=== PATIENT | male | born 1945 | race Caucasian/White ===

== ENCOUNTER 2022-05-22 19:08 | Inpatient (IN) | payer MEDICARE, SELFPAY ==
--- NOTE | ~2022-05-22 | XR_ITS ---
EXAMINATION: XR chest 1V DATE: 05/22/2022 20:09 INDICATION: Left-sided weakness. Unresponsive. TECHNIQUE: frontal view of the chest was obtained. COMPARISON: CT abdomen pelvis dated 10/22/[address] dated 05/22/2022 FINDINGS: Small lung volumes. Mild increased interstitial pattern throughout the lungs which could be due to mi ld pulmonary edema and/or atelectasis superimposed over moderate emphysema better appreciated on prio r CT. No pleural effusion or pneumothorax. Cardiomegaly. Median sternotomy wires and mediastinal surg ical clips are seen, likely from prior coronary artery bypass grafting. Right rotator cuff arthropath y. IMPRESSION: 1. Mild pulmonary edema versus atelectasis superimposed over mild to moderate emphysema. Reviewed, dictated and finalized at location A. IMPRESSION: 1. Mild pulmonary edema versus atelectasis superimposed over mild to moderate e mphysema.
--- NOTE | ~2022-05-22 | XR_ITS ---
EXAM: XR shoulder LT min 2V DATE: 05/31/2022 15:39 HISTORY: pt fell hit left shoulder . COMPARISON: None available. FINDINGS: Partially visualized intact sternotomy wires. Mediastinal vascular clips. Normal mineraliz ation. No fracture or dislocation. No lytic or blastic lesion. Moderate acromioclavicular hypertrophy . Superior migration of the left humeral head as can be seen with rotator cuff pathology. No erosion or periosteal change. Soft tissues within normal limits. IMPRESSION: No acute osseous finding in the left shoulder. Reviewed, dictated and finalized at location K.
--- NOTE | ~2022-05-22 | MR_ITS ---
EXAMINATION: MR brain/brain stem wo/w con DATE: 05/23/2022 15:52 INDICATION: Left hemiparesis. TECHNIQUE: Magnetic resonance imaging (MRI) of the brain and brainstem was performed without and with 13 mL MultiHance intravenous contrast. COMPARISON: Brain MRI 01/07/2019, head CT 05/22/2022 FINDINGS: There are patchy areas of acute infarct involving the right frontal, temporal, parietal, an d occipital lobes, right insula, and right basal ganglia in the expected distribution of right middle cerebral artery. There are old infarcts in the right frontal, parietal, and occipital lobes. There i s no intracranial hemorrhage or abnormal mass lesion. There are old infarcts in left frontal and vandana etal lobes. There are scattered areas of nonspecific increased T2-weighted signal intensity in the ce rebral white matter. The ventricles are normal in size. The orbits are normal. There is mild mucosal thickening in right maxillary sinus. The mastoid air cells are normal. IMPRESSION: 1. Large volume of acute infarct in the distribution of right middle cerebral artery. 2. Multiple old infarcts in the brain. 3. Moderate nonspecific cerebral white matter disease, which likely represents chronic small vessel i schemic disease. Reviewed, dictated and finalized at location A. IMPRESSION: 1. Large volume of acute infarct in the distribution of right middle cerebral a rtery. 2. Multiple old infarcts in the brain. 3. Moderate nonspecific cerebral white matter disease, which likely represents chronic small vessel ischemic disease.
--- NOTE | ~2022-05-22 | CT_ITS ---
EXAMINATION: CT brain wo con DATE: 05/31/2022 15:36 INDICATION: Fall and hit head . TECHNIQUE: Computed tomography (CT) of the head was performed without intravenous contrast. The mA wa s adjusted according to patient size. Iterative reconstruction technique was employed. The dose-lengt h product was 832.33 mGy-cm. COMPARISON: None FINDINGS: No acute intracranial hemorrhage or extra-axial fluid collection. No hydrocephalus, mass, or herniation. No acute ischemic infarct. Unremarkable dural venous sinus attenuation. No acute osseous abnormality. The aerated spaces are clear. Mild atrophy and chronic white matter change. Atherosclerotic intracranial calcification. Evolving ac brandi on chronic right MCA territory infarct. IMPRESSION: No acute traumatic intracranial findings. Reviewed, dictated and finalized at location K.
--- NOTE | ~2022-05-22 | CT_ITS ---
EXAMINATION: CT brain wo con DATE: 05/22/2022 19:30 INDICATION: Left-sided hemiparesis TECHNIQUE: Computed tomography (CT) of the head was performed without intravenous contrast. Sagittal and coronal reconstructions were performed. The mA was adjusted according to patient size. Iterative reconstruction technique was employed. The dose-length product was 605.33 mGy-cm. COMPARISON: Brain MR dated 01/07/2019 FINDINGS: Scattered regions of encephalomalacia in the right frontal and parietal lobes significantly more exte nsive than at the time of the prior MRI consistent with interval progression of chronic infarcts. Add itional small old infarct new since the prior study and the left parietal lobe. There is moderate sca ttered white matter hypoattenuation consistent with chronic small vessel ischemic disease. No acute i ntracranial hemorrhage, acute infarction or abnormal extra axial fluid collection. Ventricles are nor mal and symmetric. No mass/mass effect. Intracranial calcified cerebral atherosclerosis is noted. The orbits, paranasal sinuses and mastoid air cells are normal. IMPRESSION: 1. Multiple old infarcts most extensive throughout the right frontal and parietal lobes with small ol d infarct in the left parietal lobe. No acute intracranial process. Reviewed, dictated and finalized at location A. IMPRESSION: 1. Multiple old infarcts most extensive throughout the right frontal and pariet al lobes with small old infarct in the left parietal lobe. No acute intracrania l process.
--- NOTE | ~2022-05-22 | CT_ITS ---
EXAMINATION: CTA BRAIN/CAROTID DATE: 05/22/2022 20:07 INDICATION: Left-sided weakness. Unresponsive. TECHNIQUE: Computed tomographic angiography (CTA) of the head and neck was performed with 100 mL Omni paque-350 intravenous contrast. Multiplanar reconstructions and maximum intensity projection 3D-recon structions of the carotid arteries and of the intracranial arteries were created by the technologist on a separate workstation. Automated exposure control and iterative reconstruction technique were emp loyed.The dose-length product was 1022.76 mGy-cm. COMPARISON: None. FINDINGS: Carotid arteries: Fusiform ectasia of the ascending thoracic aorta which measures up to 3.9 cm maximal diameter. Extens brandon atherosclerotic coronary artery calcifications with change of prior median sternotomy and coronar y artery bypass grafting. There is 60% stenosis of the right carotid bulb relative to normal distal a rtery lumen diameter (NASCET criteria). There is 0% stenosis of the left carotid bulb relative to nor mal distal artery lumen diameter. Intracranial arteries Left vertebral artery is dominant. In addition there is significant stenosis of the distal portion of the right vertebral artery. Atherosclerotic calcific a cyst without hemodynamically significant sten osis along the bilateral carotid siphons. There is no hemodynamically significant stenosis in the bas ilar and internal carotid arteries. There are no aneurysms identified. Both A1 and P1 segments are p atent. There is also a large patent left posterior communicating artery. Cerebral arterial arborizati on appears symmetric. No abnormally enhancing brain lesions. Old infarcts in the right frontal and bi lateral parietal lobes as detailed on prior head CT. IMPRESSION: 1. 60% stenosis of the right carotid bulb relative to normal distal artery lumen diameter (NASCET cri teria). 2. 0% stenosis of the left carotid bulb relative to normal distal artery lumen diameter. 3. Left vertebral artery is dominant with additional significant stenosis along the diminutive distal right vertebral artery. Otherwise unremarkable cerebral CT angiogram. 4. Ectatic ascending thoracic aorta measuring 3.9 cm maximal diameter. 5. Moderate emphysema. Reviewed, dictated and finalized at location A. IMPRESSION: 1. 60% stenosis of the right carotid bulb relative to normal distal artery lume n diameter (NASCET criteria). 2. 0% stenosis of the left carotid bulb relative to normal distal artery lumen diameter. 3. Left vertebral artery is dominant with additional significant stenosis along the diminutive distal right vertebral artery. Otherwise unremarkable cerebral CT angiogram. 4. Ectatic ascending thoracic aorta measuring 3.9 cm maximal diameter. 5. Moderate emphysema.
--- NOTE | ~2022-05-22 | XR_ITS ---
EXAMINATION: XR barium swallow modified DATE: 06/05/2022 08:53 INDICATION: Dysphagia. TECHNIQUE: The patient was given barium-containing material of multiple consistencies to swallow by t he speech pathologist while I performed fluoroscopy. Fluoroscopy exposure time was 1.4 minutes. The n umber of fluoroscopy images saved to the PACS was 1. Dose-area product was 1.913 Gy-cm^2. FINDINGS: There is reduced labial seal/lip tension. There is reduced lingual movement. There is reduced larynge al elevation. There is laryngeal penetration with thin and mildly thick liquids. IMPRESSION: 1. Laryngeal penetration with thin and mildly thick liquids. 2. Please refer to the speech therapy report for recommendations. Reviewed, dictated and finalized at location A.
--- NOTE | ~2022-05-22 | US_ITS ---
EXAMINATION: US venous doppler [facility] DATE: 06/06/2022 08:53 INDICATION: Fever. TECHNIQUE: Grayscale ultrasound images without and with compression and Doppler ultrasound images of the bilateral lower extremity veins were obtained. COMPARISON: None. FINDINGS: The visualized portions of right common femoral vein, profunda (deep) femoral vein, femoral vein, pop liteal vein, peroneal veins, posterior tibial veins, and greater saphenous vein outflow are patent. The visualized portions of left common femoral vein, profunda femoral vein, femoral vein, popliteal v ein, peroneal veins, posterior tibial veins, and greater saphenous vein outflow are patent. IMPRESSION: 1. No deep venous thrombosis. Reviewed, dictated and finalized at location A.
--- NOTE | ~2022-05-22 | XR_ITS ---
EXAMINATION: XR abdomen obstructive series DATE: 06/03/2022 11:24 INDICATION: Pulled out gastrostomy tube. TECHNIQUE: Upright and supine views of the abdomen were obtained. COMPARISON: Abdomen radiograph 05/27/2022 FINDINGS: There are no dilated loops of bowel. There is contrast in the colon. No free intraperitonea l gas. Median sternotomy wires and mediastinal surgical clips are seen, likely from prior coronary ar narayan bypass grafting. IMPRESSION: 1. Normal bowel gas pattern. Reviewed, dictated and finalized at location A.
--- NOTE | ~2022-05-22 | XR_ITS ---
EXAMINATION: XR chest 1V portable DATE: 06/04/2022 13:34 INDICATION: Psychosis TECHNIQUE: frontal view of the chest was obtained. COMPARISON: Chest radiograph dated 06/01/2022 FINDINGS: Lung volumes are decreased. Mild opacities scattered throughout both lungs. No pleural effusion or pn eumothorax. The cardiomediastinal silhouette is abnormal limits for AP technique. Median sternotomy w ires and mediastinal surgical clips are seen, likely from prior coronary artery bypass grafting. Surg ical clips at the left neck. Dobbhoff type nasoenteric feeding tube with weighted tip in the body of the stomach. Retained oral contrast material in the colon. IMPRESSION: 1. Decreasing lung volumes with increase in still mild opacities scattered throughout both lungs whic h could represent atelectasis, mild pulmonary edema or pneumonia. Reviewed, dictated and finalized at location B. IMPRESSION: 1. Decreasing lung volumes with increase in still mild opacities scattered thro ughout both lungs which could represent atelectasis, mild pulmonary edema or pn eumonia.
--- NOTE | ~2022-05-22 | XR_ITS ---
EXAMINATION: XR barium swallow modified DATE: 05/23/2022 09:28 INDICATION: Possible aspiration TECHNIQUE: Modified barium esophagram was performed by myself who administered fluoroscopy, in conju nction with speech pathologist who administered barium in varying consistencies as per speech patholo gist documentation. This was recorded on tape. A single fluoroscopic spot image was recorded. Fluoros copy exposure time was 2.6 minutes. The DAP for this procedure was 3.936 Gycm2. FINDINGS: Oral stage: Reduced lingual movement. Pharyngeal phase: Reduced laryngeal elevation and adduction, reduced tongue base retraction, reduced pharyngeal squeeze, vallecular, piriform sinus, and pharyngeal wall residue. Laryngeal penetration: Present. Aspiration: Present. Laryngeal sensitivity: Absent. IMPRESSION: Abnormal modified barium swallow. Please refer to speech pathologist findings and specifi c feeding recommendations. Reviewed, dictated and finalized at location A. IMPRESSION: Abnormal modified barium swallow. Please refer to speech pathologis t findings and specific feeding recommendations.
--- NOTE | ~2022-05-22 | XR_ITS ---
MODIFIED ESOPHAGRAM HISTORY: Aspiration TECHNIQUE: Modified barium esophagram was performed by speech pathologist under radiologist fluorosco pic guidance. This was recorded on tape. The exam was reviewed on 05/26/2022 11:10 CDT. The DAP for this procedure was 2.1 Gycm2. Fluoroscopy time is 3 minutes. FINDINGS: Lateral projection of the cervical spine demonstrates normal alignment. Oral stage is wit hin normal limits. During pharyngeal stage there is reduced laryngeal elevation, reduced laryngeal ad duction with vallecular and piriform sinus residue. There is laryngeal penetration with aspiration wi th thin liquids and honey per cup. There is delayed cough reflex.. IMPRESSION: 1: Laryngeal penetration with aspiration. 2: Please refer to speech pathologist report for additional detail. Reviewed, dictated and finalized at location A.
--- NOTE | ~2022-05-22 | XR_ITS ---
XR chest 1V portable 06/01/2022 05:56 Indication: Aspiration. Procedure: AP portable chest Comparison: Comparison to multiple prior studies sequentially, with oldest reviewed study dated 05/22. Findings: Status post median sternotomy for CABG. There is diffuse bilateral airspace disease with pe ribronchial thickening. No pleural effusion or pneumothorax. There is residual contrast in the colon. Impression: 1: Diffuse bilateral airspace disease unchanged, pneumonia versus edema. Reviewed, dictated and finalized at location A. Impression: 1: Diffuse bilateral airspace disease unchanged, pneumonia versus edema.
--- NOTE | ~2022-05-22 | XR_ITS ---
EXAMINATION: XR fl Dobhoff insert/rad w img DATE: 06/03/2022 14:33 INDICATION: Aspiration. TECHNIQUE: A placed a nasoenteric tube with fluoroscopic guidance. The number of images was 2. The fl uoroscopy exposure time was 2.2 minutes. COMPARISON: CT abdomen 10/22/2018 FINDINGS: The nasoenteric tube tip is in the distal stomach. IMPRESSION: 1. Fluoroscopy guided nasoenteric tube placement with tip in the distal stomach. Reviewed, dictated and finalized at location A. IMPRESSION: 1. Fluoroscopy guided nasoenteric tube placement with tip in the distal stomach .
--- NOTE | ~2022-05-22 | XR_ITS ---
EXAMINATION: XR chest 1V portable DATE: 05/24/2022 06:07 INDICATION: Fever. TECHNIQUE: A single frontal view of the chest was obtained. COMPARISON: Chest single view 05/22/2022, CT abdomen 10/22/2018 FINDINGS: There is a diffuse interstitial pattern, consistent mild pulmonary edema. No pleural effusi on or pneumothorax. Cardiomegaly is noted. Median sternotomy wires and mediastinal surgical clips are seen, likely from prior coronary artery bypass grafting. IMPRESSION: 1. Mild pulmonary edema. 2. Cardiomegaly. Reviewed, dictated and finalized at location A.
--- NOTE | ~2022-05-22 | XR_ITS ---
EXAMINATION: XR abdomen NG/feed tube insert DATE: 05/27/2022 06:27 INDICATION: Is a gastric tube insertion TECHNIQUE: A supine view of the abdomen and lower chest was obtained for evaluation of feeding tube placement. COMPARISON: CT dated 10/22/2018 FINDINGS: Nasogastric tube tip in proximal side port in the body of the stomach. Retained oral contrast materia l in the colon related to a prior modified swallow study. No dilated loops of gas-filled bowel in the visualized abdomen to suggest obstruction. Visualized portion of the lungs are clear with no pulmona ry edema, pleural effusion or pneumothorax. Heart size is normal. Median sternotomy wires and mediast inal surgical clips are seen, likely from prior coronary artery bypass grafting. Mild lumbar dextrocu rvature with severe spondylosis. IMPRESSION: 1. Nasogastric tube in stomach. Reviewed, dictated and finalized at location A.
--- NOTE | ~2022-05-22 | CT_ITS ---
EXAMINATION: CT cervical spine wo con DATE: 05/22/2022 19:32 INDICATION: Left-sided weakness post fall TECHNIQUE: Computed tomography (CT) of the cervical spine was performed without intravenous contrast. Automated exposure control and iterative reconstruction technique were employed. The dose-length pro duct was 324.99 mGy-cm. 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 1-2 mm anterolisthesis C7 on T1. Al ignment is otherwise normal. Vertebral body heights are normal. No fracture. Severe disc height loss at C5-C6 and C6-C7. Moderate disc height loss at C4-C5. Mild disc height loss at C2-C3, C3-C4 and C7- T1. Disc bulges resulting in multilevel mild central canal stenosis. C2-C3 and extending through C6-C 7. Severe facet osteoarthritis on the right at C7-T1 and moderate facet osteoarthritis throughout the remainder of the cervical spine. There is also multilevel severe cervical uncovertebral osteoarthrit is. Together this results in multilevel mild to moderate bilateral cervical neural foraminal stenosis . Multiple surgical clips the left side of the neck. Prominent atherosclerotic calcifications at the right carotid bulb. Ectasia of the incompletely visualized descending thoracic aorta which measures a t least 3.9 cm in maximal diameter. Moderate emphysema in the visualized upper lungs. Median sternoto my wires suggesting prior coronary artery bypass grafting. IMPRESSION: 1. Severe cervical spondylosis. No acute osseous abnormality. 2. Moderate emphysema. 3. Prominent atherosclerotic calcification at the right carotid bulb which appears potentially hemody namically significant. Reviewed, dictated and finalized at location A. IMPRESSION: 1. Severe cervical spondylosis. No acute osseous abnormality. 2. Moderate emphysema. 3. Prominent atherosclerotic calcification at the right carotid bulb which appe ars potentially hemodynamically significant.
--- NOTE | 2022-05-22 19:19 | ECG_ITS ---
Measurements Intervals Pauline Rate: 107 P: 20 IL: 149 QRS: -3 QRSD: 94 T: 64 QT: 332 QTc: 444 Interpretive Statements SINUS TACHYCARDIA POSSIBLE LEFT ATRIAL ENLARGEMENT CONSIDER INFERIOR INFARCT, AGE INDETERMINATE NONSPECIFIC ST & T-WAVE ABNORMALITY- ANTEROLAT/HIGH LAT LEADS BASELINE ARTIFACT- I, II, AVR, AVL, AVF, V2-V3 ABNORMAL ECG NO PREVIOUS ECG AVAILABLE FOR COMPARISON Electronically Signed On 05-22-2022 20:16:26 CDT by Ed Gaming D.O.
[2022-05-22 19:22] LABS: Glucose Point of Care 110 mg/dl (65-105)
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
[2022-05-22 19:28] LABS: Basophils Percent Auto 0.2 % (0.2-1.2); Hematocrit 38.7 % (42.0-52.0); Hemoglobin 12.9 g/dL (14.0-18.0); Immature Granulocyte Absolute 0.07 K/mm3 (0.00-0.031); Immature Granulocyte Percent A 0.6 % (0-0.5); Lymphocytes Absolute Auto 0.37 K/mm3 (0.9-3.2); Lymphocytes Percent Auto 3.2 % (18.3-44.2); Mean Corpuscular HGB Conc 33.3 g/dl (32-36); Mean Corpuscular Hemoglobin 29.9 pg (26-34); Mean Corpuscular Volume 89.8 fl (80-100); Mean Platelet Volume 10.3 fl (7.4-10.4); Monocytes Absolute Auto 0.8 K/mm3 (0.1-0.6); Monocytes Percent Auto 6.9 % (2.6-8.5); Neutrophils Absolute Auto 10.3 K/mm3 (1.3-6.7); Neutrophils Percent Auto 89.1 % (45.5-73.1); Platelet Count Result 257 k/mm3 (150-375); Red Blood Count 4.31 M/mm3 (4.6-6.20); Red Cell Distribution Width 14.6 % (11.5-14.5); White Blood Count 11.5 K/mm3 (4.5-10.0)
[2022-05-22 19:39] LABS: Alanine Aminotransferase 22 U/L (6-50); Albumin Level 3.9 g/dL (3.5-5.1); Alkaline Phosphatase 94 U/L (38-126); Anion Gap 14 mmol/L (8-16); Aspartate Amino Transferase 40 U/L (17-59); Bilirubin,Total 1.2 mg/dL (0.2-1.3); Blood Urea Nitrogen 25 mg/dL (9-20); Calcium 8.5 mg/dL (8.4-10.2); Carbon Dioxide 18 mmol/L (22-30); Chloride 95 mmol/L (98-107); Estimated Glomerular Filt Rate 39; Glucose 106 mg/dL (65-110); Potassium 4.1 mmol/L (3.4-5.0); Sodium 127 mmol/L (137-145)
[2022-05-22 19:40] LABS: INR 1.3; Partial Thromboplastin Time 30.1 SECONDS (22.3-36.8); Prothrombin Time 15.2 Seconds (11.1-14.7)
[2022-05-22 19:45] VITALS: BP 116/82; PULSE 100; RESP 18; TEMP 36.8; O2SAT 92
[2022-05-22 20:08] LABS: Troponin I 0.074 ng/mL (0.000-0.034)
[2022-05-22 20:14] LABS: SARS-CoV-2 RNA PCR Negative
[2022-05-22] MEDS: SODIUM CHLORIDE 0.9% IV 1,000 ML 999 ML IV CONT (20:26)
[2022-05-22 20:28] VITALS: BP 111/71; PULSE 107; RESP 18; O2SAT 94
[2022-05-22] MEDS: ASPIRIN 81 MG CHEWABLE TABLET 324 MG PO (21:03)
[2022-05-22 22:02] LABS: Appearance Urine Clear (Clear); Bilirubin Urine Negative (Negative); Blood Urine 2+ (Negative); Color Urine Yellow (Yellow); Glucose Urine UA Negative (Negative); Ketones Urine Trace mg/dL (Negative); Leukocyte Esterase Ur Negative LEU/UL (Negative); Nitrate Urine Negative (Negative); Protein Urine Trace mg/dL (Negative); Specific Grav Ur <= 1.005 (1.001-1.035)
[2022-05-22 22:05] LABS: Lactic Acid Reflex 0.8 mmol/L (0.7-2.0)
[2022-05-22 22:15] LABS: NT Pro B Type Natriuretic Pept 3530 pg/mL (5-100)
[2022-05-22 22:17] LABS: Squamous Epithelial Cell Urine Rare /hpf (Few); WBC Urine 0-3 /hpf
[2022-05-22 22:18] LABS: Add Urine Microscopic? YES
[2022-05-22 22:50] VITALS: BP 126/86; PULSE 100; RESP 17; O2SAT 96
[2022-05-22] MEDS: CLOPIDOGREL BISULFATE 75 MG TABLET PO (23:00)
--- NOTE | 2022-05-22 23:11 | ADMGEN ---
This patient, Paul Min Sr., was admitted to IMU Room 213-01 at 2311. Patient/family oriented to hospital policies and general routines including ID bracelet, bed and alarms, visiting hours, pain management, procedures, bathroom and other care routines, personal items, smoking policy, room service/diet, and visiting hours. Information on how to activate the Rapid Response Team has been discussed. Patient/Family are encouraged to report perceived risks to care and to ask questions if they do not understand what they are told or what they should do.
[2022-05-22 23:35] VITALS: BP 123/86; PULSE 102; RESP 20; TEMP 37.7; O2SAT 97
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
[2022-05-23] VITALS (18 sets, daily range): BP systolic 89–142; BP diastolic 58–86; PULSE 90–120; RESP 18–26; TEMP 36.4–37.9; O2SAT 92–100; BMI 25.5; BMI 11.0
[2022-05-23 01:45] LABS: Troponin I 0.058 ng/mL (0.000-0.034)
--- NOTE | 2022-05-23 01:48 | ADMGEN ---
This patient, Paul Min Sr., was admitted to IMU Room 213-01 at 2315. Patient/family oriented to hospital policies and general routines including ID bracelet, bed and alarms, visiting hours, pain management, procedures, bathroom and other care routines, personal items, smoking policy, room service/diet, and visiting hours. Information on how to activate the Rapid Response Team has been discussed. Patient/Family are encouraged to report perceived risks to care and to ask questions if they do not understand what they are told or what they should do.
[2022-05-23] MEDS: SODIUM CHLORIDE 0.9% IV 1,000 ML 100 ML IV CONT (02:00)
--- NOTE | 2022-05-23 03:25 | PC.NURSE ---
05/23/22 0315 Patient bladder scanned. Greater than [address] Grullon's verbal order, mesa catheter inserted.
[2022-05-23 05:12] LABS: Basophils Percent Auto 0.2 % (0.2-1.2); Hematocrit 36.6 % (42.0-52.0); Hemoglobin 11.9 g/dL (14.0-18.0); Immature Granulocyte Absolute 0.08 K/mm3 (0.00-0.031); Immature Granulocyte Percent A 0.7 % (0-0.5); Immature Platelet Fraction Pct 7.1 % (0.9-11.2); Lymphocytes Absolute Auto 0.68 K/mm3 (0.9-3.2); Lymphocytes Percent Auto 6.2 % (18.3-44.2); Mean Corpuscular HGB Conc 32.5 g/dl (32-36); Mean Corpuscular Hemoglobin 29.4 pg (26-34); Mean Corpuscular Volume 90.4 fl (80-100); Mean Platelet Volume 11.4 fl (7.4-10.4); Monocytes Absolute Auto 1.3 K/mm3 (0.1-0.6); Monocytes Percent Auto 11.5 % (2.6-8.5); Neutrophils Absolute Auto 8.9 K/mm3 (1.3-6.7); Neutrophils Percent Auto 81.4 % (45.5-73.1); Platelet Count Result 227 k/mm3 (150-375); Red Blood Count 4.05 M/mm3 (4.6-6.20); Red Cell Distribution Width 14.6 % (11.5-14.5); White Blood Count 10.9 K/mm3 (4.5-10.0)
[2022-05-23 05:23] LABS: Alanine Aminotransferase 20 U/L (6-50); Albumin Level 3.8 g/dL (3.5-5.1); Alkaline Phosphatase 79 U/L (38-126); Anion Gap 16 mmol/L (8-16); Aspartate Amino Transferase 42 U/L (17-59); Blood Urea Nitrogen 22 mg/dL (9-20); Calcium 8.5 mg/dL (8.4-10.2); Carbon Dioxide 14 mmol/L (22-30); Chloride 104 mmol/L (98-107); Estimated CRCL calculation 35 ml/min; Estimated Glomerular Filt Rate 54; Glucose 98 mg/dL (65-110); Potassium 4.3 mmol/L (3.4-5.0); Sodium 134 mmol/L (137-145)
[2022-05-23 05:32] LABS: Burr Cells 2+ (NORMAL); Ovalocytes 1+ (NORMAL); Platelet Estimate Adequate (Adequate)
[2022-05-23 05:39] LABS: Schistocytes None Seen (NORMAL)
[2022-05-23 05:42] LABS: Cholesterol 217 mg/dL (0-200); HDL Direct 37 mg/dL; Triglycerides 120 mg/dL (<150)
[2022-05-23 05:53] LABS: LDL Cholesterol Direct 157 mg/dL
--- NOTE | 2022-05-23 06:00 | ECHO_ITS ---
Patient Info Name: Paul Min Age: 76 years : 1945 Gender: Male Ht: 63 in Wt: 145 lbs BSA: 1.72 m2 HR: 101 bpm BP: 120 / 80 mmHg Technical Quality: Good Exam Date: 05/23/2022 2:06 PM Exam Location: [facility] Patient Status: Inpatient Admit Date: 05/22/2022 Staff Ordering Physician: Jonathan Menon DO Thread Grinder Tool: Nitish Martin RDCS, RT Attending Provider: Jerrica Grullon DO Referring Physician: Lynsey GEORGE; Exam Type: CA echo dop color flow w con Study Info Indications I50.9 - Heart failure, unspecified Complete two-dimensional, color flow and Doppler transthoracic echocardiogram is performed with contrast to opacify the left ventricle and to improve the deliniation of the left ventricle endocardial borders. Strain analysis performed. Summary 1. Left ventricular chamber dimension is normal. 2. Definity contrast administered improved wall motion interpretation. 3. Left ventricular systolic function is normal, estimated at 55-60%. 4. The left ventricular diastolic function is grade I diastolic dysfunction. 5. E/e' 3 is not elevated. 6. Right ventricular systolic function is reduced based on abnormal TAPSE 1.5 cm. 7. Left atrial chamber dimension is mildly enlarged. 8. The mitral valve has mildly calcified annulus. 9. There is mild mitral valve regurgitation. Left Ventricle Definity contrast administered improved wall motion interpretation. E/e' 3 is not elevated. Global longitudinal strain is abnormal at -15.3%. Left ventricular chamber dimension is normal. Left ventricular systolic function is normal, estimated at 55-60%. The left ventricular diastolic function is grade I diastolic dysfunction. Right Ventricle Right ventricular systolic function is reduced based on abnormal TAPSE 1.5 cm. Right ventricular chamber dimension is not well visualized. Left Atria Left atrial chamber dimension is mildly enlarged. Right Atria Right atrial chamber dimension is normal. Aortic Valve The aortic valve is trileaflet. There is no aortic valve stenosis. There is no aortic valve regurgitation. Pulmonic Valve There is no pulmonic regurgitation. Mitral Valve The mitral valve has mildly calcified annulus. There is no mitral valve stenosis. There is mild mitral valve regurgitation. Tricuspid Valve There is no tricuspid valve regurgitation. Pericardium/Pleural There is no pericardial effusion. Inferior Vena Cava Normal inferior vena cava with >50% collapse upon inspiration consistent with normal right atrial pressure, 5 mmHg. Aorta The aortic root size at the sinus of Valsalva is normal. Left Ventricular Outflow Tract Name Value Normal LVOT 2D LVOT Diameter 2.05 cm LVOT Doppler LVOT Peak Gradient 2 mmHg LVOT Mean Gradient 1 mmHg LVOT VTI 11.71 cm LVOT VTI/AV VTI Ratio 0.94 LVOT Stroke Volume 38.52 ml LVOT CO 4.03 l/min LVOT CI 2.34 L/min/m2
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
[2022-05-23] MEDS: PERFLUTREN LIPID MICROSPHERES 1.5 ML VIAL DILUTED TO 10 ML TOTAL VOLUME IV PUSH (14:20)
--- NOTE | 2022-05-23 14:20 | IVDEFINITY ---
Prior to administration of IV Definity the patient was educated on the risks and benefits of the imaging enhancing agent including potential adverse side effects. The patient verbalized understanding. Allergies were verified. No exclusion criteria were identified and at least one of the following inclusion criteria were met: 1) physician request, 2) patient technically difficult to image (per the [place] [employer] guidelines of two or more segments not discernable within the apical view), or 3) questionable left ventricular function. ?
--- NOTE | 2022-05-23 14:41 | PM.IMPN ---
Progress Note: A&P Assessment and Plan (1) CVA (cerebral vascular accident): Qualifiers: CVA mechanism: unspecified Qualified Code(s): I63.9 - Cerebral infarction, unspecified Code(s): I63.9 - Cerebral infarction, unspecified Status: Acute Assessment and Plan: Neurology consult pending, MRI, echo pending, check lipids and a1c, cerebral angiogram and vascular surgery c/s for carotid stenosis (2) Carotid stenosis: Qualifiers: Laterality: right Qualified Code(s): I65.21 - Occlusion and stenosis of right carotid artery Code(s): I65.29 - Occlusion and stenosis of unspecified carotid artery Status: Acute Assessment and Plan: plavix, aspirin, statin (3) Elevated troponin: Code(s): R77.8 - Other specified abnormalities of plasma proteins Status: Acute (4) Renal failure: Qualifiers: Renal failure chronicity: unspecified chronicity Qualified Code(s): N19 - Unspecified kidney failure Code(s): N19 - Unspecified kidney failure Status: Acute (5) BPH (benign prostatic hyperplasia): Code(s): N40.0 - Benign prostatic hyperplasia without lower urinary tract symptoms Status: Acute Plan DVT prophylaxis with SCDs GI prophylaxis not indicated Code status full code Subjective Date/time seen: 05/23/22 14:41 Objective Data Vital Signs Vital Signs: Vital Signs - 24 hr 05/22/22 19:45 05/22/22 20:28 05/22/22 22:50 Temperature 98.2 F Pulse Rate 100 107 H 100 Respiratory Rate 18 18 17 Blood Pressure 116/82 111/71 126/86 Pulse Oximetry 92 94 96 Oxygen Delivery Room Air 05/22/22 23:35 05/23/22 00:00 05/23/22 02:00 Temperature 99.9 F H Pulse Rate 102 H 102 H 115 H Respiratory Rate 20 Blood Pressure 123/86 Pulse Oximetry 97 Oxygen Delivery 05/23/22 04:00 05/23/22 04:00 05/23/22 05:09 Temperature 100.1 F H Pulse Rate 112 H 115 H Respiratory Rate 20 Blood Pressure Pulse Oximetry 97 Oxygen Delivery Room Air 05/23/22 04:00 05/23/22 06:00 05/23/22 08:40 Temperature 99.7 F H 98.4 F Pulse Rate 108 H 112 H 96 Respiratory Rate 18 24 H Blood Pressure 120/80 142/86 H Pulse Oximetry 92 96 Oxygen Delivery 05/23/22 08:00 05/23/22 09:57 05/23/22 12:00 Temperature 98.4 F 100.1 F H Pulse Rate 96 94 Respiratory Rate 24 H 24 H Blood Pressure 142/86 H 89/58 L Pulse Oximetry 96 96 Oxygen Delivery Room Air 05/23/22 12:55 Temperature Pulse Rate Respiratory Rate Blood Pressure Pulse Oximetry 96 Oxygen Delivery Room Air Intake/Output Intake/Output: Intake & Output 05/20/22 05/21/22 05/22/22 05/23/22 23:59 23:59 23:59 23:59 Intake Total 1000 494 Output Total 1400 Balance 1000 -906 Meds/Results Medications: Active Medications Generic Name Dose Route Start Last Admin Trade Name Freq PRN Reason Stop Dose Admin Aspirin 81 mg 05/23/22 09:00 05/23/22 11:13 Aspirin 81 Mg Enteric Tablet PO Not Given QAM [facility] Clopidogrel Bisulfate 75 mg 05/23/22 09:00 05/23/22 11:13 Clopidogrel Bisulfate 75 Mg Tablet PO Not Given QAM [facility] Acetaminophen 1,000 mg in 100 mls @ 400 mls/hr 05/23/22 03:59 05/23/22 05:24 Ofirmev 1,000 Mg Ivpb IVPB 05/24/22 03:58 Infused Q6H PRN Infusion Pain Rated 4-6 or fever Tamsulosin HCl 0.4 mg 05/23/22 09:00 05/23/22 11:13 Tamsulosin Hcl 0.4 Mg Capsule PO Not Given QAM [facility] Radiology Results: ITS Impressions Head CT 05/22/22 19:31 IMPRESSION: 1. Multiple old infarcts most extensive throughout the right frontal and parietal lobes with small old infarct in the left parietal lobe. No acute intracranial process. Cervical Spine CT 05/22/22 19:56 IMPRESSION: 1. Severe cervical spondylosis. No acute osseous abnormality. 2. Moderate emphysema. 3. Prominent atherosclerotic calcification at the right carotid bulb which appears potentially hemodynamically significant
[2022-05-23] MEDS: ALBUTEROL SULFATE NEB 2.5 MG/3 ML INH INHALATION (17:15)
[2022-05-24] VITALS (15 sets, daily range): BP systolic 117–151; BP diastolic 66–80; PULSE 92–116; RESP 16–25; TEMP 36.9–38.7; O2SAT 81–100
[2022-05-24 04:44] LABS: Basophils Percent Auto 0.2 % (0.2-1.2); Hematocrit 36.5 % (42.0-52.0); Hemoglobin 11.9 g/dL (14.0-18.0); Immature Granulocyte Absolute 0.05 K/mm3 (0.00-0.031); Immature Granulocyte Percent A 0.5 % (0-0.5); Lymphocytes Absolute Auto 0.56 K/mm3 (0.9-3.2); Lymphocytes Percent Auto 5.9 % (18.3-44.2); Mean Corpuscular HGB Conc 32.6 g/dl (32-36); Mean Corpuscular Hemoglobin 29.2 pg (26-34); Mean Corpuscular Volume 89.7 fl (80-100); Mean Platelet Volume 10.2 fl (7.4-10.4); Monocytes Percent Auto 10.3 % (2.6-8.5); Neutrophils Absolute Auto 7.9 K/mm3 (1.3-6.7); Neutrophils Percent Auto 83.1 % (45.5-73.1); Platelet Count Result 269 k/mm3 (150-375); Red Blood Count 4.07 M/mm3 (4.6-6.20); Red Cell Distribution Width 14.9 % (11.5-14.5); White Blood Count 9.5 K/mm3 (4.5-10.0)
[2022-05-24 05:25] LABS: Anion Gap 15 mmol/L (8-16); Blood Urea Nitrogen 19 mg/dL (9-20); Calcium 8.4 mg/dL (8.4-10.2); Carbon Dioxide 19 mmol/L (22-30); Chloride 103 mmol/L (98-107); Estimated CRCL calculation 38 ml/min; Estimated Glomerular Filt Rate 59; Glucose 101 mg/dL (65-110); Potassium 4.3 mmol/L (3.4-5.0); Sodium 137 mmol/L (137-145)
[2022-05-24 10:30] LABS: CRP 33.3 mg/dL (<1.0)
[2022-05-24 10:54] LABS: Procalcitonin 1.9 ng/mL
--- NOTE | 2022-05-24 11:01 | PM.IMPN ---
Progress Note: A&P Assessment and Plan (1) Encephalopathy: Code(s): G93.40 - Encephalopathy, unspecified Status: Acute Assessment and Plan: resolving, pull mesa when mentation resolves (2) CVA (cerebral vascular accident): Qualifiers: CVA mechanism: unspecified Qualified Code(s): I63.9 - Cerebral infarction, unspecified Code(s): I63.9 - Cerebral infarction, unspecified Status: Acute Assessment and Plan: MRI showed acute infarct in r. mca, multiple old infarcts Appreciate neurology consultation, continue PT/OT (3) Carotid stenosis: Qualifiers: Laterality: right Qualified Code(s): I65.21 - Occlusion and stenosis of right carotid artery Code(s): I65.29 - Occlusion and stenosis of unspecified carotid artery Status: Acute Assessment and Plan: plavix, aspirin, statin (4) Elevated troponin: Code(s): R77.8 - Other specified abnormalities of plasma proteins Status: Acute Assessment and Plan: repeat, monitor telemetry (5) Renal failure: Qualifiers: Renal failure chronicity: unspecified chronicity Qualified Code(s): N19 - Unspecified kidney failure Code(s): N19 - Unspecified kidney failure Status: Acute Assessment and Plan: appears resolved, monitor (6) BPH (benign prostatic hyperplasia): Code(s): N40.0 - Benign prostatic hyperplasia without lower urinary tract symptoms Status: Acute Assessment and Plan: mesa in place, cont flomax, attempt to wean when encephalopathy resolves Plan DVT prophylaxis with SCDs GI prophylaxis not indicated Code status full code Subjective Date/time seen: 05/24/22 11:01 Interval history: Family reports he has been having some hallucinations. No overnight events noted. No chest pain or shortness of breath. No nausea, vomiting or diarrhea. Some low-grade fevers noted, max temperature of a 100.2? Review of Systems Review of Systems: ROS unobtainable: Yes unobtainable due to mental status Exam Narrative: General: No acute distress, alert and oriented per baseline HEENT: Atraumatic, normocephalic, mucous membranes moist CV: Regular rate and rhythm, S1, S2 Lungs: Clear to auscultation bilaterally, no rales or crackles noted, no wheezes, good air entry Abdomen: Soft, nontender, nondistended Extremities: Normal to inspection Skin: No rashes noted, no lesions or wounds seen Neuro: Left facial droop noted, reduced sensation and motor strength of left upper and lower extremity, some dysarthria noted with speech, strength appears normal in right upper and lower extremity Objective Data Vital Signs Vital Signs: Vital Signs - 24 hr 05/23/22 12:00 05/23/22 12:55 05/23/22 17:18 Temperature 100.1 F H Pulse Rate 94 92 Respiratory Rate 24 H 22 H Blood Pressure 89/58 L Pulse Oximetry 96 96 Oxygen Delivery Room Air Oxygen Flow Rate 05/23/22 17:27 05/23/22 16:00 05/23/22 18:17 Temperature 99 F 100.2 F H Pulse Rate 92 120 H Respiratory Rate 24 H 26 H Blood Pressure 133/77 Pulse Oximetry 96 Oxygen Delivery Oxygen Flow Rate 05/23/22 12:00 05/23/22 14:00 05/23/22 16:00 Temperature Pulse Rate 96 101 H 104 H Respiratory Rate Blood Pressure Pulse Oximetry Oxygen Delivery Oxygen Flow Rate 05/23/22 18:00 05/23/22 20:00 05/23/22 12:00 Temperature 97.5 F L Pulse Rate 108 H 96 96 Respiratory Rate 18 18 Blood Pressure 101/67 Pulse Oximetry 100 100 Oxygen Delivery Room Air Oxygen Flow Rate 05/23/22 16:00 05/23/22 20:00 05/23/22 20:00 Temperature Pulse Rate 96 96 96 Respiratory Rate 18 18 Blood Pressure Pulse Oximetry 100 100 Oxygen Delivery Room Air Nasal Cannula Oxygen Flow Rate 2 05/23/22 22:00 05/24/22 00:00 05/24/22 00:00 Temperature 98.8 F Pulse Rate 90 95 95 Respiratory Rate 18 18 Blood Pressure 117/66 Pulse Oximetry
--- NOTE | 2022-05-24 12:00 | WPDNEUROPN ---
Progress Note: A&P Assessment and Plan (1) CVA (cerebral vascular accident): Qualifiers: CVA mechanism: unspecified Qualified Code(s): I63.9 - Cerebral infarction, unspecified Code(s): I63.9 - Cerebral infarction, unspecified Status: Acute (2) Carotid stenosis: Qualifiers: Laterality: right Qualified Code(s): I65.21 - Occlusion and stenosis of right carotid artery Code(s): I65.29 - Occlusion and stenosis of unspecified carotid artery Status: Acute Plan Paul Min Sr. is a 76 year old male with a history of HTN, HLD, COPD, ischemic cardiomyopathy who presented yesterday due to concerns for stroke. CT head showed old infarcts in the R frontoparietal region and L parietal lobe. CTA showed 60% right ICA stenosis and R vertebral artery stenosis. MRI showed R MCA territory infarct. - Patient is at risk of edema/hemorrhagic conversion given size of stroke. Stat CT head for any change in mental status or neuro exam - Continue ASA 81mg daily and Plavix 75mg daily - Start statin, check HgbA1c - PT/OT - Will need cerebral angiogram and vascular surgery evaluation within 2 weeks for carotid stenosis Subjective Date/time seen: 05/24/22 12:00 Interval history: Paul Min Sr. is a 76 year old male with a history of HTN, HLD, COPD, ischemic cardiomyopathy who presented due to concerns for stroke. LKW was 9AM on 05/22. Patient was noted to have left sided weakness. He was taken to [place] ED where he had an NIH score of 12 (gaze preference, facial droop, left arm weakness, left leg weakness, sensory deficit, dysarthria, limb ataxia, hemineglect). CT head showed chronic encephalomalacia, mostly in the R frontoparietal region and L parietal lobe, but no acute process. He did not receive tPA due to being outside the window of treatment. CTA showed 60% stenosis of the right ICA, diminutive R vertebral artery with stenosis. [facility] stroke neurology was consulted and they recommended no acute intervention for carotid stenosis, but did recommend outpatient angiogram. BP on arrival was within normal range. He was started on ASA and Plavix, and admitted for further stroke work-up. LDL is 157. No HgbA1c on file. MRI brain showed R MCA territory infarct. Patient did not have any new complaints this morning. Surface echo unremarkable. BP have been stable. He did have a temp of 100.2 yesterday evening. Review of Systems Constitutional: Constitutional: Reports weakness Eyes: Eyes: Reports no additional eye complaints ENT: Denies Normal hearing present and Denies tinnitus Cardiovascular: Cardiovascular: Reports no additional cardiovascular complaints Respiratory: Respiratory: Reports no additional respiratory complaints Gastrointestinal: Gastrointestinal: Reports no additional gastrointestinal complaints Genitourinary: Genitourinary: Reports no additional male genitourinary complaints Musculoskeletal: Musculoskeletal: Reports no additional musculoskeletal complaints Integumentary/Breasts: Skin/Breast: Reports system reviewed and no additional complaints, except as docu Neurologic: Reports as per HPI Psychiatric: Psychiatric: Reports no additional psychiatric complaints Exam Const: General: comfortable and no acute distress HENMT: General nose exam: Normal nares present Mouth: Yes moist mucous membranes Eyes: Pupils: Equal, round and reactive pupils present EOM: EOMs intact bilaterally Resp: Effort & Inspection: normal respiratory effort Auscultation: clear to auscultation bilaterally Cardio: Rate: regular rate Rhythm: regular rhythm GI: GI Palp: Yes Soft to palpation Auscultation: normal bowel sounds Skin: General skin exam: normal color Neuro: Other: Left facial droop. Strength 5/5 in right upper and right lower extremity. Strength 1/5 in left upper extremity and 2/5 in left lower extremity. Reduced sensation to light touch in left arm and left leg. Right gaze preferences with inabi
[2022-05-24 12:31] LABS: Troponin I 0.106 ng/mL (0.000-0.034)
--- NOTE | 2022-05-24 14:31 | ECG_ITS ---
Measurements Intervals [place] Rate: 97 P: 18 IN: 141 QRS: 6 QRSD: 93 T: 57 QT: 347 QTc: 441 Interpretive Statements SINUS RHYTHM POSSIBLE LEFT ATRIAL ENLARGEMENT NONSPECIFIC ST & T-WAVE ABNORMALITY COMPARED TO ECG 05/22/2022 19:49:03 HEART RATE DECREASED COMPARED TO PRIOR Electronically Signed On 05-25-2022 17:25:40 CDT by Randa Ahmadi M.D.
[2022-05-24] MEDS: SODIUM CHLORIDE 0.9% IV 1,000 ML 75 ML IV CONT (16:53)
[2022-05-25] VITALS (15 sets, daily range): BP systolic 118–140; BP diastolic 66–82; PULSE 78–100; RESP 14–22; TEMP 36.3–37.3; O2SAT 91–99
[2022-05-25] MEDS: SODIUM CHLORIDE 0.9% IV 1,000 ML 75 ML IV CONT ×2 (06:36→21:40)
--- NOTE | 2022-05-25 10:52 | PM.IMPN ---
Progress Note: A&P Assessment and Plan (1) Encephalopathy: Code(s): G93.40 - Encephalopathy, unspecified Status: Acute Assessment and Plan: Appears resolved, pull Yoon today (2) CVA (cerebral vascular accident): Qualifiers: CVA mechanism: unspecified Qualified Code(s): I63.9 - Cerebral infarction, unspecified Code(s): I63.9 - Cerebral infarction, unspecified Status: Acute Assessment and Plan: MRI showed acute infarct in r. mca, multiple old infarcts Appreciate neurology consultation, continue PT/OT (3) Carotid stenosis: Qualifiers: Laterality: right Qualified Code(s): I65.21 - Occlusion and stenosis of right carotid artery Code(s): I65.29 - Occlusion and stenosis of unspecified carotid artery Status: Acute Assessment and Plan: plavix, aspirin, statin (4) Elevated troponin: Code(s): R77.8 - Other specified abnormalities of plasma proteins Status: Acute Assessment and Plan: repeat, monitor telemetry Appreciate cardiology consultation, would recommend high-intensity statin continue aspirin and Plavix per their note (5) Renal failure: Qualifiers: Renal failure chronicity: unspecified chronicity Qualified Code(s): N19 - Unspecified kidney failure Code(s): N19 - Unspecified kidney failure Status: Acute Assessment and Plan: Resolved (6) BPH (benign prostatic hyperplasia): Code(s): N40.0 - Benign prostatic hyperplasia without lower urinary tract symptoms Status: Acute Assessment and Plan: Will DC Yoon today and monitor voiding Plan DVT prophylaxis with SCDs GI prophylaxis not indicated Code status full code Subjective Date/time seen: 05/25/22 10:52 Interval history: Patient much more alert today than yesterday. No overnight events noted. No chest pain or shortness of breath. No nausea, vomiting or diarrhea. No fevers or chills. Review of Systems Review of Systems: ROS unobtainable: Yes unobtainable due to mental status Exam Narrative: General: No acute distress, alert and oriented per baseline HEENT: Atraumatic, normocephalic, mucous membranes moist CV: Regular rate and rhythm, S1, S2 Lungs: Clear to auscultation bilaterally, no rales or crackles noted, no wheezes, good air entry Abdomen: Soft, nontender, nondistended Extremities: Normal to inspection Skin: No rashes noted, no lesions or wounds seen Neuro: Left facial droop noted, improved today, reduced sensation and motor strength of left upper and lower extremity, improved motor strength of left lower extremity, some dysarthria noted with speech, strength appears normal in right upper and lower extremity Objective Data Vital Signs Vital Signs: Vital Signs - 24 hr 05/24/22 12:00 05/24/22 16:00 05/24/22 12:00 Temperature 98.4 F 99.5 F Pulse Rate 106 H 104 H 104 H Respiratory Rate 16 20 20 Blood Pressure 120/76 148/78 H Pulse Oximetry 98 81 L 81 L Oxygen Delivery Room Air 05/24/22 12:00 05/24/22 14:00 05/24/22 16:00 Temperature Pulse Rate 109 H 107 H 109 H Respiratory Rate Blood Pressure Pulse Oximetry Oxygen Delivery 05/24/22 16:00 05/24/22 20:00 05/24/22 22:04 Temperature 101.7 F H 98.7 F Pulse Rate 102 H Respiratory Rate 20 Blood Pressure 131/76 Pulse Oximetry 92 Oxygen Delivery Room Air 05/24/22 20:00 05/25/22 00:00 05/24/22 23:26 Temperature 98.9 F Pulse Rate 102 H 92 92 Respiratory Rate 20 18 18 Blood Pressure 120/70 Pulse Oximetry 92 91 91 Oxygen Delivery Room Air Room Air 05/24/22 20:00 05/24/22 22:00 05/25/22 00:00 Temperature Pulse Rate 102 H 99 95 Respiratory Rate Blood Pressure Pulse Oximetry Oxygen Delivery 05/25/22 01:33 05/25/22 04:00 05/25/22 04:00 Temperature 98.1 F Pulse Rate 100 84 92 Respiratory Rate 20 Blood Pressure 138/76 Pulse Oximetry 93 Oxygen Deliver
--- NOTE | 2022-05-25 13:56 | PM.CNCAR ---
Assessment and Plan Assessment and plan (1) CVA (cerebral vascular accident): Qualifiers: CVA mechanism: unspecified Qualified Code(s): I63.9 - Cerebral infarction, unspecified Code(s): I63.9 - Cerebral infarction, unspecified Status: Acute (2) Elevated troponin: Code(s): R77.8 - Other specified abnormalities of plasma proteins Status: Acute (3) Hx of CABG: Onset Date: ~1990 Code(s): Z95.1 - Presence of aortocoronary bypass graft Status: Acute Plan Troponin elevations likely type 2 NSTEMI due to large acute CVA rather than type 1 NSTEMI. Echo this admission shows normal LVEF. Already on ASA and Plavix for his CVA. Would start high-intensity statin. No further inpatient cardiac workup needed at this time. Patient to follow up with outpatient Cardiology Clinic. History of Present Illness History of Present Illness Consult date/time: 05/25/22 13:56 Requesting physician: Jessica Bynum DO Consult reason: Other (Elevated troponin) Reason For Visit: CVA,Renal Insufficiency,Elevated Troponin Narrative: Patient is a 76-year-old male with a history of CAD s/p CABG, history of CVA, HTN, HLD, COPD who presented on 05/22 for acute CVA. He did not receive TPA due to being outside the window of treatment time. Workup this admission showed: Brain MRI showing large volume of acute infarct in the distribution of the right middle cerebral artery. Multiple old infarcts in the brain. Chronic small vessel ischemic disease. EKG with sinus rhythm with nonspecific STTW abnormalities Troponins 0.074 --> 0.058 --> 1.06 Echocardiogram done on 05/23 showed LVEF 55-60%, grade 1 diastolic dysfunction, reduced RV function, no significant valvular disease. Patient denies any recent chest pain. Daughter at bedside, and reports that he has done okay since his bypass Telemetry shows no significant arrhythmias. No evidence of atrial fibrillation. Review of Systems Review of Systems: All systems reviewed & are unremarkable except as noted in HPI and below (HPI) [facility] Past Medical History Medical History BPH (benign prostatic hyperplasia) Carotid stenosis CVA (cerebral vascular accident) (~05/2021) Emphysema/COPD Essential hypertension Hyperlipidemia Ischemic cardiomyopathy Surgical History Surgical History (Updated 05/25/22 @ 14:06 by Randa Ahmadi MD) History of left-sided carotid endarterectomy (~2020) Hx of CABG (~1990) 3 vessel CABG Family History Family History Mother Heart problem Natural of unknown etiology Father Smoking COPD (chronic obstructive pulmonary disease) Social History Social History Social History: Code status: Full code Surrogate decision maker: Kim Hudson (daughter) Smoking packs per day: 2 Smoking cigarettes per day: 40.0 Years smoked: 25 Smoking pack-years: 50.00 Smoking status: Former smoker Alcohol intake: never Substance use: never Living arrangements: alone Additional living arrangements comments: He is and lives alone. Has 2 daughters and 2 sons. 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 Spiritual care concerns: No Meds Home Medications and Allergies Home Medications Medication Instructions Recorded Confirmed Type aspirin 325 mg capsule 325 mg PO DAILY 05/24/22 05/24/22 History Allergies Allergy/AdvReac Type Severity Reaction Status Date / Time No Known Allergies Allergy Verified 05/22/22 20:26 Vital Signs Vital Signs - 24 hr 05/24/22 16:00 05/24/22 14:00 05/24/22 16:00 Temperature 37.5 C Pulse Rate 104 H 107 H 109 H Respiratory Rate 20 Blood Pressure 148/78 H Pulse Oximetry 81 L Oxygen Delivery 05/24/22 1
[2022-05-26] VITALS (16 sets, daily range): BP systolic 121–161; BP diastolic 57–94; PULSE 69–102; RESP 16–28; TEMP 36.4–36.8; O2SAT 92–99
[2022-05-26 04:56] LABS: Basophils Percent Auto 0.3 % (0.2-1.2); Eosinophils Percent Auto 0.1 % (0-4.4); Hematocrit 37.3 % (42.0-52.0); Hemoglobin 12.2 g/dL (14.0-18.0); Immature Granulocyte Absolute 0.12 K/mm3 (0.00-0.031); Immature Granulocyte Percent A 1.4 % (0-0.5); Lymphocytes Absolute Auto 0.61 K/mm3 (0.9-3.2); Lymphocytes Percent Auto 7.1 % (18.3-44.2); Mean Corpuscular HGB Conc 32.7 g/dl (32-36); Mean Corpuscular Hemoglobin 29.8 pg (26-34); Mean Platelet Volume 10.5 fl (7.4-10.4); Monocytes Absolute Auto 0.7 K/mm3 (0.1-0.6); Monocytes Percent Auto 8.4 % (2.6-8.5); Neutrophils Absolute Auto 7.1 K/mm3 (1.3-6.7); Neutrophils Percent Auto 82.7 % (45.5-73.1); Platelet Count Result 280 k/mm3 (150-375); Red Cell Distribution Width 15.2 % (11.5-14.5); White Blood Count 8.6 K/mm3 (4.5-10.0)
[2022-05-26 05:10] LABS: Alanine Aminotransferase 31 U/L (6-50); Albumin Level 3.4 g/dL (3.5-5.1); Alkaline Phosphatase 80 U/L (38-126); Anion Gap 12 mmol/L (8-16); Aspartate Amino Transferase 61 U/L (17-59); Bilirubin,Total 0.6 mg/dL (0.2-1.3); Blood Urea Nitrogen 26 mg/dL (9-20); Calcium 8.2 mg/dL (8.4-10.2); Carbon Dioxide 19 mmol/L (22-30); Chloride 110 mmol/L (98-107); Estimated CRCL calculation 45 ml/min; Estimated Glomerular Filt Rate > 60; Glucose 90 mg/dL (65-110); Potassium 3.5 mmol/L (3.4-5.0); Sodium 141 mmol/L (137-145)
--- NOTE | 2022-05-26 10:22 | PCOTNOTE ---
Attempted to see patient this am, however patient was unavailable with testing at this time.
--- NOTE | 2022-05-26 10:56 | PCSTNOTE ---
Please refer to the Modified Barium Swallow Evaluation in the EMR.
--- NOTE | 2022-05-26 12:30 | PCOTNOTE ---
Attempted to see patient this pm, however patient was sleeping soundly upon entering and was not disturbed for this reason.
[2022-05-26] MEDS: SODIUM CHLORIDE 0.9% IV 1,000 ML 75 ML IV CONT (13:46)
--- NOTE | 2022-05-26 15:20 | PCSTNOTE ---
On 05/26/22, the student, Darby Juarez, provided care and completed [facility] documentation on this patient. I have reviewed the student's documentation and agree with the findings.
--- NOTE | 2022-05-26 18:02 | PM.IMPN ---
Progress Note: A&P Assessment and Plan (1) Encephalopathy: Code(s): G93.40 - Encephalopathy, unspecified Status: Acute Assessment and Plan: Appears resolved, pull Yoon today (2) CVA (cerebral vascular accident): Qualifiers: CVA mechanism: unspecified Qualified Code(s): I63.9 - Cerebral infarction, unspecified Code(s): I63.9 - Cerebral infarction, unspecified Status: Acute Assessment and Plan: MRI showed acute infarct in r. mca, multiple old infarcts Appreciate neurology consultation, continue PT/OT (3) Carotid stenosis: Qualifiers: Laterality: right Qualified Code(s): I65.21 - Occlusion and stenosis of right carotid artery Code(s): I65.29 - Occlusion and stenosis of unspecified carotid artery Status: Acute Assessment and Plan: plavix, aspirin, statin (4) Elevated troponin: Code(s): R77.8 - Other specified abnormalities of plasma proteins Status: Acute Assessment and Plan: repeat, monitor telemetry Appreciate cardiology consultation, would recommend high-intensity statin continue aspirin and Plavix per their note (5) Renal failure: Qualifiers: Renal failure chronicity: unspecified chronicity Qualified Code(s): N19 - Unspecified kidney failure Code(s): N19 - Unspecified kidney failure Status: Acute Assessment and Plan: Resolved (6) BPH (benign prostatic hyperplasia): Code(s): N40.0 - Benign prostatic hyperplasia without lower urinary tract symptoms Status: Acute Assessment and Plan: Will DC Yoon today and monitor voiding (7) Dysphagia: Code(s): R13.10 - Dysphagia, unspecified Status: Acute Assessment and Plan: Will place NG tube and start tube feedings, patient has now failed swallow studies in several different occasions Plan DVT prophylaxis with SCDs GI prophylaxis not indicated Code status full code Subjective Date/time seen: 05/26/22 18:02 Interval history: Patient states he feels much better than yesterday. No overnight events noted. No chest pain or shortness of breath. No nausea, vomiting or diarrhea. No fevers or chills. Review of Systems Review of Systems: 12 point review of systems was assessed and was negative except as noted in the HPI Exam Narrative: General: HEENT: Atraumatic, normocephalic, mucous membranes moist CV: Regular rate and rhythm, S1, S2 Lungs: Clear to auscultation bilaterally, no rales or crackles noted, no wheezes, good air entry Abdomen: Soft, nontender, nondistended Extremities: Normal to inspection Skin: No rashes noted, no lesions or wounds seen Psych: Euthymic, normal affect Neuro: Left facial droop noted, somewhat improved from yesterday, right upper and lower extremities 5/5, left upper extremity 0/5, left lower extremity 3/5, sensation intact throughout everything except left upper extremity, diminished in left lower extremity Objective Data Vital Signs Vital Signs: Vital Signs - 24 hr 05/25/22 20:12 05/25/22 20:00 05/25/22 23:45 Temperature 97.3 F L 98.3 F Pulse Rate 78 78 84 Respiratory Rate 16 16 22 H Blood Pressure 118/66 128/82 Pulse Oximetry 97 97 99 Oxygen Delivery Room Air 05/25/22 23:58 05/25/22 20:00 05/25/22 22:00 Temperature Pulse Rate 84 83 90 Respiratory Rate 22 H Blood Pressure Pulse Oximetry 99 Oxygen Delivery Room Air 05/26/22 00:00 05/26/22 02:00 05/26/22 04:00 Temperature Pulse Rate 86 81 85 Respiratory Rate Blood Pressure Pulse Oximetry Oxygen Delivery 05/26/22 04:38 05/26/22 03:41 05/26/22 05:47 Temperature 98.2 F Pulse Rate 89 89 81 Respiratory Rate 20 20 Blood Pressure 148/82 H Pulse Oximetry 98 98 Oxygen Delivery Room Air 05/26/22 08:00 05/26/22 08:00 05/26/22 12:00 Temperature 97.5 F L 97.7 F Pulse Rate 83 73 Respiratory Rate 24 H 28 H Blood Pressure 161/94 H 136/
[2022-05-26 23:15] LABS: Glucose Point of Care 72 mg/dl (65-105)
[2022-05-27] VITALS (16 sets, daily range): BP systolic 115–154; BP diastolic 53–94; PULSE 76–98; RESP 16–20; TEMP 36.1–36.8; O2SAT 94–99; BMI 24.5; BMI 10.0
[2022-05-27] MEDS: SODIUM CHLORIDE 0.9% IV 1,000 ML 75 ML IV CONT (03:53)
[2022-05-27 04:42] LABS: Basophils Absolute Auto 0.1 K/mm3 (0.0-0.1); Basophils Percent Auto 0.6 % (0.2-1.2); Eosinophils Percent Auto 0.2 % (0-4.4); Hematocrit 38.3 % (42.0-52.0); Hemoglobin 12.3 g/dL (14.0-18.0); Immature Granulocyte Absolute 0.21 K/mm3 (0.00-0.031); Immature Granulocyte Percent A 2.4 % (0-0.5); Lymphocytes Absolute Auto 0.74 K/mm3 (0.9-3.2); Lymphocytes Percent Auto 8.5 % (18.3-44.2); Mean Corpuscular HGB Conc 32.1 g/dl (32-36); Mean Corpuscular Hemoglobin 29.5 pg (26-34); Mean Corpuscular Volume 91.8 fl (80-100); Mean Platelet Volume 10.9 fl (7.4-10.4); Monocytes Absolute Auto 0.9 K/mm3 (0.1-0.6); Monocytes Percent Auto 10.1 % (2.6-8.5); Neutrophils Absolute Auto 6.8 K/mm3 (1.3-6.7); Neutrophils Percent Auto 78.2 % (45.5-73.1); Platelet Count Result 322 k/mm3 (150-375); Red Blood Count 4.17 M/mm3 (4.6-6.20); Red Cell Distribution Width 15.4 % (11.5-14.5); White Blood Count 8.7 K/mm3 (4.5-10.0)
[2022-05-27 04:57] LABS: Alanine Aminotransferase 35 U/L (6-50); Albumin Level 3.3 g/dL (3.5-5.1); Alkaline Phosphatase 82 U/L (38-126); Anion Gap 10 mmol/L (8-16); Aspartate Amino Transferase 60 U/L (17-59); Bilirubin,Total 0.6 mg/dL (0.2-1.3); Blood Urea Nitrogen 23 mg/dL (9-20); Calcium 8.4 mg/dL (8.4-10.2); Carbon Dioxide 19 mmol/L (22-30); Chloride 111 mmol/L (98-107); Estimated CRCL calculation 49 ml/min; Estimated Glomerular Filt Rate > 60; Glucose 86 mg/dL (65-110); Potassium 3.7 mmol/L (3.4-5.0); Sodium 140 mmol/L (137-145)
--- NOTE | 2022-05-27 08:51 | PM.IMPN ---
Progress Note: A&P Assessment and Plan (1) Encephalopathy: Code(s): G93.40 - Encephalopathy, unspecified Status: Acute Assessment and Plan: close to baseline (2) CVA (cerebral vascular accident): Qualifiers: CVA mechanism: unspecified Qualified Code(s): I63.9 - Cerebral infarction, unspecified Code(s): I63.9 - Cerebral infarction, unspecified Status: Acute Assessment and Plan: MRI showed large acute infarct in r. mca, multiple old infarcts Appreciate neurology consultation, continue PT/OT rehab pending when able to get nutrition A1c and lipid panel pending slowly improving in facial droop and left lower extremity, left upper extremity appears unchanged with regards to motor function, sensation appears to be improving (3) Carotid stenosis: Qualifiers: Laterality: right Qualified Code(s): I65.21 - Occlusion and stenosis of right carotid artery Code(s): I65.29 - Occlusion and stenosis of unspecified carotid artery Status: Acute Assessment and Plan: plavix, aspirin, statin will need vasc surgery consult outpatient (4) BPH (benign prostatic hyperplasia): Code(s): N40.0 - Benign prostatic hyperplasia without lower urinary tract symptoms Status: Acute Assessment and Plan: mesa d/c, voiding well (5) Dysphagia: Code(s): R13.10 - Dysphagia, unspecified Status: Acute Assessment and Plan: Will place NG tube and start tube feedings, patient has now failed swallow studies in several different occasions Started on D5 half-normal saline +20 mEq of potassium until tube feeding order placed will consult GI in anticipation for PEG tube placement continue speech therapy start PPI (6) Emphysema/COPD: Code(s): J43.9 - Emphysema, unspecified Status: Acute Assessment and Plan: currently stable on room air, occasionally gets albuterol nebulizers Plan DVT prophylaxis with SCDs GI prophylaxis with PPI Code status full code Subjective Date/time seen: 05/27/22 08:51 Interval history: Patient states he feels about the same as yesterday, no complaints. No overnight events noted. No chest pain or shortness of breath. No nausea, vomiting or diarrhea. No fevers or chills. Review of Systems Review of Systems: 12 point review of systems was assessed and was negative except as noted in the HPI Exam Narrative: General: No acute distress, alert and oriented per baseline HEENT: Atraumatic, normocephalic, mucous membranes moist CV: Regular rate and rhythm, S1, S2 Lungs: Clear to auscultation bilaterally, no rales or crackles noted, no wheezes, good air entry Abdomen: Soft, nontender, nondistended Extremities: Normal to inspection Skin: No rashes noted, no lesions or wounds seen Psych: Euthymic, normal affect Neuro: Left facial droop remains, appears unchanged from yesterday, left upper extremity 0/5 strength, right upper extremity and right lower extremity 5/5 strength, left lower extremity 3/5 strength, sensation to light touch intact throughout all extremities today Objective Data Vital Signs Vital Signs: Vital Signs - 24 hr 05/26/22 12:00 05/26/22 15:05 05/26/22 10:00 Temperature 97.7 F Pulse Rate 73 76 Respiratory Rate 28 H Blood Pressure 136/90 Pulse Oximetry 94 97 Oxygen Delivery Room Air 05/26/22 14:00 05/26/22 12:00 05/26/22 12:00 Temperature Pulse Rate 82 83 Respiratory Rate Blood Pressure Pulse Oximetry Oxygen Delivery Room Air 05/26/22 16:00 05/26/22 16:00 05/26/22 16:00 Temperature 97.6 F Pulse Rate 87 69 Respiratory Rate 20 Blood Pressure 142/76 H Pulse Oximetry 93 Oxygen Delivery Room Air 05/26/22 18:00 05/26/22 20:00 05/26/22 20:00 Temperature 97.5 F L Pulse Rate 83 86 87 Respiratory Rate 16 Blood Pressure 132/57 L Pulse Oximetry 98 Oxygen Delivery 05/26/22 20:00 05/26/22 22:00
[2022-05-27] MEDS: CLOPIDOGREL BISULFATE 75 MG TABLET PO (09:32)
[2022-05-27] MEDS: ATORVASTATIN 40 MG TABLET 80 MG PO (09:32)
[2022-05-27] MEDS: PANTOPRAZOLE SODIUM IV 40 MG VIAL IV PUSH (09:33)
[2022-05-27] MEDS: KCL 20 MEQ/D5/0.45% SOD CHL 1,000 ML 100 ML IV CONT ×2 (09:37→20:25)
[2022-05-27 10:31] LABS: Troponin I 0.021 ng/mL (0.000-0.034)
[2022-05-27 12:44] LABS: Hemoglobin A1C 5.5 % (<5.7)
--- NOTE | 2022-05-27 13:20 | PCNSR ---
On 05/27/22, the student, Fer Greer, provided care and [facility]. I have reviewed the student's documentation and agree with the findings.
--- NOTE | 2022-05-27 15:02 | WPDGICN ---
Assessment and Plan Assessment and plan (1) CVA (cerebral vascular accident): Qualifiers: CVA mechanism: unspecified Qualified Code(s): I63.9 - Cerebral infarction, unspecified Code(s): I63.9 - Cerebral infarction, unspecified Status: Acute Assessment and Plan: Patient is status post CVA. Currently unable eat or swallow with or pharyngeal dysphagia. Patient has failed modified barium swallow. Plan to pursue PEG tube placement on . Plavix will be held another anticoagulation held prior to procedure. (2) Dysphagia: Code(s): R13.10 - Dysphagia, unspecified Status: Acute Assessment and Plan: Patient has absent gag red flecks. Oral pharyngeal dysphagia subsequent to recent CVA. Plan to proceed with PEG tube for nutritional support on . (3) Hx of CABG: Onset Date: ~1990 Code(s): Z95.1 - Presence of aortocoronary bypass graft Status: Acute GI Consult Note Consult date/time: 05/27/22 15:02 Reason for consult: Possible PEG tube placement HPI: Paul Min Sr. is a 76 year old male I am asked to see in consideration for PEG tube placement. Patient has a history of CVAs and hyper in the past this. Had another CVA last Thursday evening with residual left hemiparesis. Patient has had difficulty swallowing since that time. Speech has been affected to a modest degree. Patient has had several swallowing studies and has been unable to swallow Safely. Patient is past medical history is significant for triple bypass surgery many years ago. Family history noncontributory. Patient is seen in evaluated in the presence of his daughter.. Review of Systems Review of Systems: Review of systems noncontributory. [facility] Past Medical History Medical History (Updated 05/27/22 @ 09:04 by Jessica Bynum DO) BPH (benign prostatic hyperplasia) Carotid stenosis CVA (cerebral vascular accident) (~05/2021) Emphysema/COPD Essential hypertension Hyperlipidemia Ischemic cardiomyopathy Surgical History Surgical History (Updated 05/25/22 @ 14:06 by Randa Ahmadi MD) History of left-sided carotid endarterectomy (~2020) Hx of CABG (~1990) 3 vessel CABG Family History Family History Mother Heart problem Natural of unknown etiology Father Smoking COPD (chronic obstructive pulmonary disease) Social History Social History Social History: Code status: Full code Surrogate decision maker: Kim Hudson (daughter) Smoking packs per day: 2 Smoking cigarettes per day: 40.0 Years smoked: 25 Smoking pack-years: 50.00 Smoking status: Former smoker Alcohol intake: never Substance use: never Living arrangements: alone Additional living arrangements comments: He is and lives alone. Has 2 daughters and 2 sons. 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 Spiritual care concerns: No Meds Home Medications and Allergies Home Medications Medication Instructions Recorded Confirmed Type aspirin 325 mg capsule 325 mg PO DAILY 05/24/22 05/24/22 History Allergies Allergy/AdvReac Type Severity Reaction Status Date / Time No Known Allergies Allergy Verified 05/22/22 20:26 Vital Signs Vital Signs - 24 hr 05/26/22 15:05 05/26/22 16:00 05/26/22 16:00 Temperature Pulse Rate 87 Respiratory Rate Blood Pressure Pulse Oximetry 97 Oxygen Delivery Room Air Room Air 05/26/22 16:00 05/26/22 18:00 05/26/22 20:00 Temperature 97.6 F 97.5 F L Pulse Rate 69 83 86 Respiratory Rate 20 16 Blood Pressure 142/76 H 132/57 L Pulse Oximetry 93 98 Oxygen Delivery 05/26/22 20:00 05/26/22 20:00 05/26/22 22:00 Temperature Pulse Rate 87 86 102 H Respiratory Rate 16 Blood Press
[2022-05-28] VITALS (19 sets, daily range): BP systolic 94–116; BP diastolic 60–73; PULSE 78–106; RESP 18–24; TEMP 36–37.1; O2SAT 92–97
[2022-05-28] MEDS: ALBUTEROL SULFATE NEB 2.5 MG/3 ML INH INHALATION ×4 (04:17→21:20)
[2022-05-28] MEDS: IPRATROPIUM BR 0.02% INH SOLN 0.5 MG/2.5 ML VIAL INHALATION ×4 (04:19→21:20)
[2022-05-28] MEDS: FUROSEMIDE INJ 40 MG/4 ML VIAL IV PUSH (04:21)
[2022-05-28 04:40] LABS: Basophils Absolute Auto 0.1 K/mm3 (0.0-0.1); Basophils Percent Auto 0.5 % (0.2-1.2); Eosinophils Absolute Auto 0.1 K/mm3 (0-0.3); Eosinophils Percent Auto 0.7 % (0-4.4); Hematocrit 37.5 % (42.0-52.0); Hemoglobin 12.3 g/dL (14.0-18.0); Immature Granulocyte Absolute 0.26 K/mm3 (0.00-0.031); Immature Granulocyte Percent A 2.3 % (0-0.5); Lymphocytes Absolute Auto 1.14 K/mm3 (0.9-3.2); Lymphocytes Percent Auto 10.1 % (18.3-44.2); Mean Corpuscular HGB Conc 32.8 g/dl (32-36); Mean Corpuscular Hemoglobin 29.6 pg (26-34); Mean Corpuscular Volume 90.1 fl (80-100); Mean Platelet Volume 10.3 fl (7.4-10.4); Monocytes Absolute Auto 1.2 K/mm3 (0.1-0.6); Monocytes Percent Auto 10.3 % (2.6-8.5); Neutrophils Absolute Auto 8.6 K/mm3 (1.3-6.7); Neutrophils Percent Auto 76.1 % (45.5-73.1); Platelet Count Result 374 k/mm3 (150-375); Red Blood Count 4.16 M/mm3 (4.6-6.20); Red Cell Distribution Width 15.1 % (11.5-14.5); White Blood Count 11.3 K/mm3 (4.5-10.0)
[2022-05-28 04:51] LABS: INR 1.4; Prothrombin Time 16.5 Seconds (11.1-14.7)
[2022-05-28 04:52] LABS: Partial Thromboplastin Time 36.7 SECONDS (22.3-36.8)
[2022-05-28 05:00] LABS: Alanine Aminotransferase 42 U/L (6-50); Albumin Level 3.3 g/dL (3.5-5.1); Alkaline Phosphatase 93 U/L (38-126); Anion Gap 14 mmol/L (8-16); Aspartate Amino Transferase 80 U/L (17-59); Bilirubin,Total 0.7 mg/dL (0.2-1.3); Blood Urea Nitrogen 16 mg/dL (9-20); Calcium 8.2 mg/dL (8.4-10.2); Carbon Dioxide 17 mmol/L (22-30); Chloride 111 mmol/L (98-107); Estimated CRCL calculation 45 ml/min; Estimated Glomerular Filt Rate > 60; Glucose 111 mg/dL (65-110); Potassium 3.9 mmol/L (3.4-5.0); Sodium 142 mmol/L (137-145)
[2022-05-28 06:55] LABS: Appearance Urine Slightly Cloudy (Clear); Bilirubin Urine Negative (Negative); Blood Urine 2+ (Negative); Color Urine Yellow (Yellow); Glucose Urine UA Negative (Negative); Ketones Urine Negative (Negative); Leukocyte Esterase Ur Negative LEU/UL (Negative); Nitrate Urine Negative (Negative); Protein Urine Negative (Negative); Specific Grav Ur 1.015 (1.001-1.035)
[2022-05-28 07:46] LABS: Mucus Urine Rare /lpf; RBC Urine 21-50 /hpf (0-2)
[2022-05-28 07:53] LABS: Add Urine Microscopic? YES
--- NOTE | 2022-05-28 08:01 | WPDGIPROGNO ---
Progress Note: A&P Assessment and Plan (1) Dysphagia: Code(s): R13.10 - Dysphagia, unspecified Status: Acute Assessment and Plan: Patient with oropharyngeal dysphagia after recent CVA. Plan for PEG tube tomorrow on . Will keep NPO After midnight and hold anticoagulation in anticipation PEG tube. (2) CVA (cerebral vascular accident): Qualifiers: CVA mechanism: unspecified Qualified Code(s): I63.9 - Cerebral infarction, unspecified Code(s): I63.9 - Cerebral infarction, unspecified Status: Acute Assessment and Plan: continue supportive care and rehab. CVA appears to be etiology for patient's dysphagia. (3) Hx of CABG: Onset Date: ~1990 Code(s): Z95.1 - Presence of aortocoronary bypass graft Status: Acute Subjective Date/time seen: 05/28/22 08:01 Patient alert. Unable to swallow safely. Residual left hemiparesis noted. No change in overall condition today. Obtaining nutrition via NG tube at present. Review of Systems Review of Systems: Review of systems noncontributory. Exam Narrative: Physical exam reveals patient be alert. Vital signs stable. Left hemiparesis noted. HEENT exam reveals no gag reflex. Lungs are clear. Heart without murmur. Abdomen bowel sounds present soft nontender no obvious scars. He does have a midline chest scar from previous CABG. Objective Data Vital Signs Vital Signs: Vital Signs - 24 hr 05/27/22 10:00 05/27/22 12:53 05/27/22 14:20 Temperature 97.7 F Pulse Rate 88 93 Respiratory Rate 16 Blood Pressure 154/94 H Pulse Oximetry 95 Oxygen Delivery Room Air 05/27/22 12:00 05/27/22 12:00 05/27/22 14:00 Temperature Pulse Rate 91 85 Respiratory Rate Blood Pressure Pulse Oximetry Oxygen Delivery Room Air 05/27/22 16:31 05/27/22 16:00 05/27/22 16:00 Temperature 97.6 F Pulse Rate 98 88 98 Respiratory Rate 16 16 Blood Pressure 141/81 H Pulse Oximetry 96 96 Oxygen Delivery Room Air 05/27/22 18:00 05/27/22 19:51 05/27/22 20:00 Temperature 97.7 F Pulse Rate 86 92 95 Respiratory Rate 20 Blood Pressure 115/72 Pulse Oximetry 94 Oxygen Delivery 05/27/22 20:00 05/27/22 22:00 05/27/22 23:35 Temperature 96.9 F L Pulse Rate 92 97 95 Respiratory Rate 20 20 Blood Pressure 140/53 L Pulse Oximetry 94 95 Oxygen Delivery Room Air 05/28/22 00:00 05/28/22 00:00 05/28/22 02:00 Temperature Pulse Rate 91 95 91 Respiratory Rate 20 Blood Pressure Pulse Oximetry 95 Oxygen Delivery Room Air 05/28/22 04:17 05/28/22 04:34 05/28/22 04:35 Temperature Pulse Rate 90 88 Respiratory Rate 24 H 20 Blood Pressure Pulse Oximetry 94 Oxygen Delivery Room Air 05/28/22 04:00 05/28/22 04:00 05/28/22 04:00 Temperature 97.6 F Pulse Rate 82 106 H 88 Respiratory Rate 24 H 20 Blood Pressure 109/64 Pulse Oximetry 95 94 Oxygen Delivery Room Air 05/28/22 06:00 Temperature Pulse Rate 95 Respiratory Rate Blood Pressure Pulse Oximetry Oxygen Delivery Intake/Output Intake/Output: Intake & Output 05/25/22 05/26/22 05/27/22 05/28/22 23:59 23:59 23:59 23:59 Intake Total 2100 1000 3000 Output Total 350 800 850 900 Balance 6546 786 0295 -900 Meds/Results Medications: Active Medications Generic Name Dose Route Start Last Admin Trade Name Freq PRN Reason Stop Dose Admin Albuterol 2.5 mg 05/28/22 08:00 Albuterol Sulfate Neb 2.5 Mg/3 Ml Inh INHALATION Q4HRT [facility] Aspirin 81 mg 05/23/22 09:00 05/27/22 08:00 Aspirin 81 Mg Enteric Tablet PO Not Given QAM FREDDY Atorvastatin Calcium 80 mg 05/27/22 09:00 05/27/22 09:32 Atorvastatin 40 Mg Tablet PO 80 mg DAILY FREDDY Administration Clopidogrel Bisulfate 75 mg 05/23/22 09:00 05/27/22 09:32 Clopidogrel Bisulfate 75 Mg Tablet PO 75 mg QAM [facility] Administration Potassium Chloride/Dextrose/Sod Cl 1,000 ml
[2022-05-28] MEDS: TAMSULOSIN HCL 0.4 MG CAPSULE PO (10:31)
[2022-05-28] MEDS: ASPIRIN 81 MG ENTERIC TABLET PO (10:31)
[2022-05-28] MEDS: PANTOPRAZOLE SODIUM IV 40 MG VIAL IV PUSH (10:31)
[2022-05-28] MEDS: ATORVASTATIN 40 MG TABLET 80 MG PO (10:31)
--- NOTE | 2022-05-28 13:58 | PM.IMPN ---
Progress Note: A&P Assessment and Plan (1) Encephalopathy: Code(s): G93.40 - Encephalopathy, unspecified Status: Acute Assessment and Plan: close to baseline (2) CVA (cerebral vascular accident): Qualifiers: CVA mechanism: unspecified Qualified Code(s): I63.9 - Cerebral infarction, unspecified Code(s): I63.9 - Cerebral infarction, unspecified Status: Acute Assessment and Plan: MRI showed large acute infarct in r. mca, multiple old infarcts Appreciate neurology consultation, continue PT/OT rehab pending when able to get nutrition A1c and lipid panel pending slowly improving in facial droop and left lower extremity, left upper extremity appears unchanged with regards to motor function, sensation appears to be improving PEG tube planned. (3) Carotid stenosis: Qualifiers: Laterality: right Qualified Code(s): I65.21 - Occlusion and stenosis of right carotid artery Code(s): I65.29 - Occlusion and stenosis of unspecified carotid artery Status: Acute Assessment and Plan: plavix, aspirin, statin will need vasc surgery consult outpatient (4) BPH (benign prostatic hyperplasia): Code(s): N40.0 - Benign prostatic hyperplasia without lower urinary tract symptoms Status: Acute Assessment and Plan: mesa d/c, voiding well (5) Dysphagia: Code(s): R13.10 - Dysphagia, unspecified Status: Acute Assessment and Plan: Will place NG tube and start tube feedings, patient has now failed swallow studies in several different occasions Started on D5 half-normal saline +20 mEq of potassium until tube feeding order placed will consult GI in anticipation for PEG tube placement continue speech therapy start PPI (6) Emphysema/COPD: Code(s): J43.9 - Emphysema, unspecified Status: Acute Assessment and Plan: currently stable on room air, occasionally gets albuterol nebulizers Plan DVT prophylaxis with SCDs GI prophylaxis with PPI Code status full code Subjective Date/time seen: 05/28/22 13:58 No acute issues overnight Exam Narrative: General: No acute distress, alert and oriented per baseline HEENT: Atraumatic, normocephalic, mucous membranes moist CV: Regular rate and rhythm, S1, S2 Lungs: Clear to auscultation bilaterally, no rales or crackles noted, no wheezes, good air entry Abdomen: Soft, nontender, nondistended Extremities: Normal to inspection Skin: No rashes noted, no lesions or wounds seen Psych: Euthymic, normal affect Neuro: Left facial droop remains, appears unchanged from yesterday, left upper extremity 0/5 strength, right upper extremity and right lower extremity 5/5 strength, left lower extremity 3/5 strength, sensation to light touch intact throughout all extremities today Objective Data Vital Signs Vital Signs: Vital Signs - 24 hr 05/27/22 14:20 05/27/22 14:00 05/27/22 16:31 Temperature 97.6 F Pulse Rate 85 98 Respiratory Rate 16 Blood Pressure 141/81 H Pulse Oximetry 96 Oxygen Delivery Room Air 05/27/22 16:00 05/27/22 16:00 05/27/22 18:00 Temperature Pulse Rate 88 98 86 Respiratory Rate 16 Blood Pressure Pulse Oximetry 96 Oxygen Delivery Room Air 05/27/22 19:51 05/27/22 20:00 05/27/22 20:00 Temperature 97.7 F Pulse Rate 92 95 92 Respiratory Rate 20 20 Blood Pressure 115/72 Pulse Oximetry 94 94 Oxygen Delivery Room Air 05/27/22 22:00 05/27/22 23:35 05/28/22 00:00 Temperature 96.9 F L Pulse Rate 97 95 91 Respiratory Rate 20 Blood Pressure 140/53 L Pulse Oximetry 95 Oxygen Delivery 05/28/22 00:00 05/28/22 02:00 05/28/22 04:17 Temperature Pulse Rate 95 91 90 Respiratory Rate 20 24 H Blood Pressure Pulse Oximetry 95 Oxygen Delivery Room Air 05/28/22 04:34 05/28/22 04:35 05/28/22 04:00 Temperature 97.6 F Pulse Rate 88 82 Respiratory Rate 20 24 H Blood Pressure
--- NOTE | 2022-05-28 19:36 | PC.NURSE ---
This patient, Paul Min , was received from [imu] on 05/28/22 at 1845. Patient/family oriented to unit policies and routines.
[2022-05-29] VITALS (16 sets, daily range): BP systolic 81–114; BP diastolic 53–64; PULSE 81–98; RESP 18–28; TEMP 36.5–36.6; O2SAT 87–95
[2022-05-29] MEDS: ALBUTEROL SULFATE NEB 2.5 MG/3 ML INH INHALATION ×4 (04:20→20:55)
[2022-05-29] MEDS: IPRATROPIUM BR 0.02% INH SOLN 0.5 MG/2.5 ML VIAL INHALATION ×4 (04:20→20:55)
[2022-05-29 05:52] LABS: Basophils Absolute Auto 0.1 K/mm3 (0.0-0.1); Basophils Percent Auto 0.6 % (0.2-1.2); Eosinophils Absolute Auto 0.1 K/mm3 (0-0.3); Eosinophils Percent Auto 0.9 % (0-4.4); Hematocrit 36.1 % (42.0-52.0); Hemoglobin 11.8 g/dL (14.0-18.0); Immature Granulocyte Absolute 0.44 K/mm3 (0.00-0.031); Immature Granulocyte Percent A 3.8 % (0-0.5); Lymphocytes Absolute Auto 1.15 K/mm3 (0.9-3.2); Lymphocytes Percent Auto 9.9 % (18.3-44.2); Mean Corpuscular HGB Conc 32.7 g/dl (32-36); Mean Corpuscular Hemoglobin 29.4 pg (26-34); Mean Platelet Volume 10.3 fl (7.4-10.4); Monocytes Absolute Auto 1.1 K/mm3 (0.1-0.6); Monocytes Percent Auto 9.4 % (2.6-8.5); Neutrophils Absolute Auto 8.7 K/mm3 (1.3-6.7); Neutrophils Percent Auto 75.4 % (45.5-73.1); Platelet Count Result 379 k/mm3 (150-375); Red Blood Count 4.01 M/mm3 (4.6-6.20); Red Cell Distribution Width 15.3 % (11.5-14.5); White Blood Count 11.6 K/mm3 (4.5-10.0)
[2022-05-29 06:22] LABS: Alanine Aminotransferase 46 U/L (6-50); Albumin Level 3.2 g/dL (3.5-5.1); Alkaline Phosphatase 93 U/L (38-126); Anion Gap 8 mmol/L (8-16); Aspartate Amino Transferase 61 U/L (17-59); Bilirubin,Total 0.6 mg/dL (0.2-1.3); Blood Urea Nitrogen 20 mg/dL (9-20); Calcium 8.1 mg/dL (8.4-10.2); Carbon Dioxide 21 mmol/L (22-30); Chloride 109 mmol/L (98-107); Estimated CRCL calculation 45 ml/min; Estimated Glomerular Filt Rate > 60; Glucose 122 mg/dL (65-110); Potassium 3.3 mmol/L (3.4-5.0); Sodium 138 mmol/L (137-145)
[2022-05-29] MEDS: POTASSIUM CHLORIDE INJ 40 MEQ in SODIUM CHLORIDE 0.9% IV 500 ML 130 MEQ IVPB (09:04)
[2022-05-29] MEDS: PANTOPRAZOLE SODIUM IV 40 MG VIAL IV PUSH (10:31)
--- NOTE | 2022-05-29 10:54 | PM.IMPN ---
Progress Note: A&P Assessment and Plan (1) Encephalopathy: Code(s): G93.40 - Encephalopathy, unspecified Status: Acute Assessment and Plan: close to baseline (2) CVA (cerebral vascular accident): Qualifiers: CVA mechanism: unspecified Qualified Code(s): I63.9 - Cerebral infarction, unspecified Code(s): I63.9 - Cerebral infarction, unspecified Status: Acute Assessment and Plan: MRI showed large acute infarct in r. mca, multiple old infarcts Appreciate neurology consultation, continue PT/OT rehab pending when able to get nutrition A1c and lipid panel pending slowly improving in facial droop and left lower extremity, left upper extremity appears unchanged with regards to motor function, sensation appears to be improving PEG tube planned. (3) Carotid stenosis: Qualifiers: Laterality: right Qualified Code(s): I65.21 - Occlusion and stenosis of right carotid artery Code(s): I65.29 - Occlusion and stenosis of unspecified carotid artery Status: Acute Assessment and Plan: plavix, aspirin, statin will need vasc surgery consult outpatient (4) BPH (benign prostatic hyperplasia): Code(s): N40.0 - Benign prostatic hyperplasia without lower urinary tract symptoms Status: Acute Assessment and Plan: mesa d/c, voiding well (5) Dysphagia: Code(s): R13.10 - Dysphagia, unspecified Status: Acute Assessment and Plan: Will place NG tube and start tube feedings, patient has now failed swallow studies in several different occasions Started on D5 half-normal saline +20 mEq of potassium until tube feeding order placed will consult GI in anticipation for PEG tube placement continue speech therapy start PPI (6) Emphysema/COPD: Code(s): J43.9 - Emphysema, unspecified Status: Acute Assessment and Plan: currently stable on room air, occasionally gets albuterol nebulizers Plan DVT prophylaxis with SCDs GI prophylaxis with PPI Code status full code Subjective Date/time seen: 05/29/22 10:54 no new complaints Exam Narrative: General: No acute distress, alert and oriented per baseline HEENT: Atraumatic, normocephalic, mucous membranes moist CV: Regular rate and rhythm, S1, S2 Lungs: Clear to auscultation bilaterally, no rales or crackles noted, no wheezes, good air entry Abdomen: Soft, nontender, nondistended Extremities: Normal to inspection Skin: No rashes noted, no lesions or wounds seen Psych: Euthymic, normal affect Neuro: Left facial droop remains, appears unchanged from yesterday, left upper extremity 0/5 strength, right upper extremity and right lower extremity 5/5 strength, left lower extremity 3/5 strength, sensation to light touch intact throughout all extremities today Objective Data Vital Signs Vital Signs: Vital Signs - 24 hr 05/28/22 12:00 05/28/22 13:42 05/28/22 13:51 Temperature Pulse Rate 83 84 Respiratory Rate 18 18 Blood Pressure Pulse Oximetry Oxygen Delivery Room Air Oxygen Flow Rate 05/28/22 12:00 05/28/22 12:00 05/28/22 16:00 Temperature 96.8 F L 98.7 F Pulse Rate 78 93 93 Respiratory Rate 20 20 Blood Pressure 94/60 L 103/71 Pulse Oximetry 92 97 Oxygen Delivery Oxygen Flow Rate 05/28/22 20:00 05/28/22 21:20 05/28/22 21:30 Temperature Pulse Rate 91 89 Respiratory Rate 18 18 Blood Pressure Pulse Oximetry 97 Oxygen Delivery Room Air Oxygen Flow Rate 05/28/22 22:00 05/29/22 00:00 05/29/22 00:05 Temperature 98 F Pulse Rate 98 Respiratory Rate 23 H Blood Pressure Pulse Oximetry 95 87 L 93 Oxygen Delivery Room Air Nasal Cannula Oxygen Flow Rate 2 05/29/22 04:20 05/29/22 04:30 05/29/22 09:15 Temperature Pulse Rate 93 90 81 Respiratory Rate 21 H 20 Blood Pressure Pulse Oximetry 93 Oxygen Delivery Nasal Cannula Oxygen Flow Rate 2 05/29/22 09:15
[2022-05-29] MEDS: LACTATED RINGERS 1,000 ML 150 ML IV CONT (13:30)
--- NOTE | 2022-05-29 13:32 | WPDANESEPPF ---
Anes - Initial Pre Proc Eval Procedure: Operation Date: 05/29/22 13:00 Proposed Procedures p Percutaneous Endoscopic Gastrostomy - Dwayne Chopra MD Date/Time: 05/29/22 13:32 Surgeon: Jerrica Grullon DO Pre Op Diagnosis: CVA,Renal Insufficiency,Elevated Troponin Patient Data Age: 76 Gender: M Height: 1.6 m Weight: 63.8 kg Last Vital Signs Temp 98 F 05/29/22 00:00 Pulse 85 05/29/22 09:24 Resp 20 05/29/22 09:24 BP 103/71 05/28/22 16:00 Pulse Ox 93 05/29/22 09:15 O2 Del Method Nasal Cannula 05/29/22 09:15 O2 Flow Rate 2 05/29/22 09:15 Allergies Allergy/AdvReac Type Severity Reaction Status Date / Time No Known Allergies Allergy Verified 05/22/22 20:26 Home Medications Medication Instructions Recorded Confirmed Type aspirin 325 mg capsule 325 mg PO DAILY 05/24/22 05/24/22 History Laboratory Tests 05/29/22 05/29/22 05:42 05:42 WBC 11.6 K/mm3 H K/mm3 (4.5-10.0) RBC 4.01 M/mm3 L M/mm3 (4.6-6.20) Hgb 11.8 g/dL L g/dL (14.0-18.0) Hct 36.1 % L % (42.0-52.0) MCV 90.0 fl fl (80-100) MCH 29.4 pg pg (26-34) MCHC 32.7 g/dl g/dl (32-36) RDW 15.3 % H % (11.5-14.5) Plt Count 379 k/mm3 H k/mm3 (150-375) MPV 10.3 fl fl (7.4-10.4) Immature Gran % (Auto) 3.8 % H % (0-0.5) Neut % (Auto) 75.4 % H % (45.5-73.1) Lymph % (Auto) 9.9 % L % (18.3-44.2) [place] % (Auto) 9.4 % H % (2.6-8.5) Eos % (Auto) 0.9 % % (0-4.4) Baso % (Auto) 0.6 % % (0.2-1.2) Lymph # (Auto) 1.15 K/mm3 K/mm3 (0.9-3.2) [place] # (Auto) 1.1 K/mm3 H K/mm3 (0.1-0.6) Eos # (Auto) 0.1 K/mm3 K/mm3 (0-0.3) Baso # (Auto) 0.1 K/mm3 K/mm3 (0.0-0.1) Abs Immat Gran (auto) 0.44 K/mm3 H K/mm3 (0.00-0.031) Absolute Neuts (auto) 8.7 K/mm3 H K/mm3 (1.3-6.7) Absolute Nucleated RBC 0.0 K/mm3 K/mm3 (0.0-0.012) Nucleated RBC % 0.0 % % (0.0-0.2) Sodium 138 mmol/L mmol/L (137-145) Potassium 3.3 mmol/L L mmol/L (3.4-5.0) Chloride 109 mmol/L H mmol/L (98-107) Carbon Dioxide 21 mmol/L L mmol/L (22-30) Anion Gap 8 mmol/L mmol/L (8-16) BUN 20 mg/dL mg/dL (9-20) Creatinine 1.00 mg/dL mg/dL (0.7-1.3) Estim Creat Clear Calc 45 ml/min ml/min Estimated GFR > 60 (59 - ) Glucose 122 mg/dL H mg/dL (65-110) Calcium 8.1 mg/dL L mg/dL (8.4-10.2) Total Bilirubin 0.6 mg/dL mg/dL (0.2-1.3) AST 61 U/L H U/L (17-59) ALT 46 U/L U/L (6-50) Alkaline Phosphatase 93 U/L U/L (38-126) Total Protein 6.0 g/dL L g/dL (6.3-8.2) Albumin 3.2 g/dL L g/dL (3.5-5.1) Patient hx anesthesia problems: none Family hx anesthesia problems: none Results Review: All pre-operative results and documents have been reviewed as part of the pre-operative evaluation. [facility] Past Medical History Medical History (Updated 05/27/22 @ 09:04 by Jessica Bynum, DO) BPH (benign prostatic hyperplasia) Carotid stenosis CVA (cerebral vascular accident) (~05/2021) Emphysema/COPD Essential hypertension Hyperlipidemia Ischemic cardiomyopathy Surgical History Surgical History (Updated 05/25/22 @ 14:06 by Randa Ahmadi MD) History of left-sided carotid endarterectomy (~2020) Hx of CABG (~1990) 3 vessel CABG Family History Family History Mother Heart problem Natural of unknown etiology Father Smoking COPD (chronic obstructive pulmonary disease) Social History Social History Social History: Code status: Full code Surrogate decision maker: Kim Hudson (daughter) Smoking packs per day: 2 Smoking cigarettes per day: 40.0 Years smoked: 25 Smoking pack-years: 50.00 Smoking status: Former smoker
[2022-05-30] VITALS (14 sets, daily range): BP systolic 103–123; BP diastolic 65–74; PULSE 76–113; RESP 16–20; TEMP 36.2–36.9; O2SAT 92–99
[2022-05-30] MEDS: ALBUTEROL SULFATE NEB 2.5 MG/3 ML INH INHALATION ×4 (03:46→21:37)
[2022-05-30] MEDS: IPRATROPIUM BR 0.02% INH SOLN 0.5 MG/2.5 ML VIAL INHALATION ×4 (03:46→21:37)
[2022-05-30 06:17] LABS: Basophils Absolute Auto 0.1 K/mm3 (0.0-0.1); Basophils Percent Auto 0.9 % (0.2-1.2); Eosinophils Absolute Auto 0.1 K/mm3 (0-0.3); Eosinophils Percent Auto 1.2 % (0-4.4); Hematocrit 37.1 % (42.0-52.0); Hemoglobin 11.9 g/dL (14.0-18.0); Immature Granulocyte Absolute 0.47 K/mm3 (0.00-0.031); Immature Granulocyte Percent A 4.2 % (0-0.5); Lymphocytes Absolute Auto 1.14 K/mm3 (0.9-3.2); Lymphocytes Percent Auto 10.1 % (18.3-44.2); Mean Corpuscular HGB Conc 32.1 g/dl (32-36); Mean Corpuscular Hemoglobin 29.4 pg (26-34); Mean Corpuscular Volume 91.6 fl (80-100); Mean Platelet Volume 10.2 fl (7.4-10.4); Monocytes Absolute Auto 1.2 K/mm3 (0.1-0.6); Monocytes Percent Auto 10.7 % (2.6-8.5); Neutrophils Absolute Auto 8.2 K/mm3 (1.3-6.7); Neutrophils Percent Auto 72.9 % (45.5-73.1); Platelet Count Result 421 k/mm3 (150-375); Red Blood Count 4.05 M/mm3 (4.6-6.20); Red Cell Distribution Width 15.8 % (11.5-14.5); White Blood Count 11.3 K/mm3 (4.5-10.0)
[2022-05-30 06:26] LABS: Alanine Aminotransferase 37 U/L (6-50); Albumin Level 3.1 g/dL (3.5-5.1); Alkaline Phosphatase 98 U/L (38-126); Anion Gap 8 mmol/L (8-16); Aspartate Amino Transferase 43 U/L (17-59); Bilirubin,Total 0.6 mg/dL (0.2-1.3); Blood Urea Nitrogen 20 mg/dL (9-20); Calcium 8.3 mg/dL (8.4-10.2); Carbon Dioxide 20 mmol/L (22-30); Chloride 113 mmol/L (98-107); Estimated CRCL calculation 45 ml/min; Estimated Glomerular Filt Rate > 60; Glucose 112 mg/dL (65-110); Sodium 141 mmol/L (137-145)
--- NOTE | 2022-05-30 08:32 | WPDGIPROGNO ---
Progress Note: A&P Assessment and Plan (1) PEG (percutaneous endoscopic gastrostomy) status: Code(s): Z93.1 - Gastrostomy status Status: Acute Assessment and Plan: Patient unable to eat because of CVA. PEG tube placed yesterday appears to be healing well. Plan to continue local care to PEG tube site advance tube feedings to60cc/hour today and further according to primary care service. Continue local care to PEG tube site after discharge. (2) CVA (cerebral vascular accident): Qualifiers: CVA mechanism: unspecified Qualified Code(s): I63.9 - Cerebral infarction, unspecified Code(s): I63.9 - Cerebral infarction, unspecified Status: Acute Subjective Date/time seen: 05/30/22 08:32 Patient alert today. Appears at baseline level. Offers no specific complaints. Tolerated tube feedings at a low rate overnight. Had PEG tube placed yesterday. Review of Systems Review of Systems: Review of systems unobtainable. Exam Narrative: Physical exam reveals patient to be alert. Vital signs stable. HEENT exam is unremarkable. Patient is anicteric. Lungs are clear to auscultation and percussion. Heart is without murmur or extra sounds. Abdomen bowel sounds present soft nontender with no organomegaly peg tube site appears to be healing well. Objective Data Vital Signs Vital Signs: Vital Signs - 24 hr 05/29/22 09:15 05/29/22 09:15 05/29/22 09:24 Temperature Pulse Rate 81 81 85 Respiratory Rate 20 20 Blood Pressure Pulse Oximetry 93 Oxygen Delivery Nasal Cannula Oxygen Flow Rate 2 05/29/22 13:30 05/29/22 14:14 05/29/22 14:24 Temperature 97.9 F Pulse Rate 89 89 92 Respiratory Rate 18 28 H 27 H Blood Pressure 112/62 81/53 L 91/59 L Pulse Oximetry 94 93 94 Oxygen Delivery Nasal Cannula Nasal Cannula Nasal Cannula Oxygen Flow Rate 2 2 2 05/29/22 14:34 05/29/22 16:20 05/29/22 16:28 Temperature Pulse Rate 93 90 84 Respiratory Rate 24 H 20 20 Blood Pressure 102/58 L Pulse Oximetry 95 Oxygen Delivery Nasal Cannula Oxygen Flow Rate 2 05/29/22 15:15 05/29/22 20:55 05/29/22 20:55 Temperature 97.7 F Pulse Rate 86 87 84 Respiratory Rate 20 20 Blood Pressure 114/64 Pulse Oximetry 94 92 Oxygen Delivery Nasal Cannula Oxygen Flow Rate 2 05/29/22 21:05 05/29/22 20:55 05/30/22 02:36 Temperature 98.1 F Pulse Rate 85 113 H Respiratory Rate 20 20 Blood Pressure 123/65 Pulse Oximetry 95 99 Oxygen Delivery Nasal Cannula Oxygen Flow Rate 2 05/30/22 03:47 05/30/22 03:57 Temperature Pulse Rate 105 H 98 Respiratory Rate 20 20 Blood Pressure Pulse Oximetry Oxygen Delivery Oxygen Flow Rate Intake/Output Intake/Output: Intake & Output 05/27/22 05/28/22 05/29/22 05/30/22 23:59 23:59 23:59 23:59 Intake Total 3000 2023 100 Output Total 850 2800 660 750 Balance 5060 -777 -560 -750 Meds/Results Medications: Active Medications Generic Name Dose Route Start Last Admin Trade Name Freq PRN Reason Stop Dose Admin Albuterol 2.5 mg 05/28/22 08:00 05/30/22 03:46 Albuterol Sulfate Neb 2.5 Mg/3 Ml Inh INHALATION 2.5 mg Q4HRT FREDDY Administration Aspirin 81 mg 05/23/22 09:00 05/29/22 09:40 Aspirin 81 Mg Enteric Tablet PO Not Given QAM FREDDY Atorvastatin Calcium 80 mg 05/27/22 09:00 05/29/22 09:40 Atorvastatin 40 Mg Tablet PO Not Given DAILY FREDDY Clopidogrel Bisulfate 75 mg 05/23/22 09:00 05/27/22 09:32 Clopidogrel Bisulfate 75 Mg Tablet PO 75 mg QAM FREDDY Administration Potassium Chloride/Dextrose/Sod Cl 1,000 mls @ 100 mls/hr 05/27/22 09:15 05/28/22 12:24 Kcl 20 Meq/D5/0.45% Sod Chl IV CONT Infused .Q10H FREDDY Infusion Acetaminophen 1,000 mg in 100 mls @ 400 mls/hr 05/29/22 22:39 05/30/22 00:24 Ofirmev 1,000 Mg Ivpb IVPB 05/30/22 22:38 400 mls/hr Q6H PRN Infusion Pain Rated 4-6 Ipratropium [place] 0.5 mg 05/28/22 08:00 05/30/22
[2022-05-30] MEDS: ASPIRIN 81 MG ENTERIC TABLET PO (08:41)
[2022-05-30] MEDS: ATORVASTATIN 40 MG TABLET 80 MG PO (08:41)
[2022-05-30] MEDS: PANTOPRAZOLE SODIUM IV 40 MG VIAL IV PUSH (08:41)
[2022-05-30] MEDS: TAMSULOSIN HCL 0.4 MG CAPSULE PO (08:41)
--- NOTE | 2022-05-30 08:46 | WPDANESPN ---
Anes - Prog Note Post-Op Date/Time: 05/30/22 08:46 Cardiovascular status: normal Respiratory status: normal Airway patency: baseline Mental status: baseline Post-Op hydration status: normal Vital Signs: Last Vital Signs Temp 98.1 F 05/30/22 02:36 Pulse 87 05/30/22 08:34 Resp 18 05/30/22 08:34 BP 123/65 05/30/22 02:36 Pulse Ox 93 05/30/22 08:33 O2 Del Method Nasal Cannula 05/30/22 08:33 O2 Flow Rate 2 05/30/22 08:33 Pain Score (VAS): 0 I/O: Intake & Output 05/29/22 05/30/22 05/30/22 23:59 07:59 15:59 Intake Total 0 Output Total 350 750 Balance -350 -750 Laboratory Tests 05/30/22 05:47 05/30/22 05:47 05/30/22 05/30/22 05:47 05:47 WBC 11.3 H RBC 4.05 L Hgb 11.9 L Hct 37.1 L MCV 91.6 MCH 29.4 MCHC 32.1 RDW 15.8 H Plt Count 421 H MPV 10.2 Immature Gran % (Auto) 4.2 H Neut % (Auto) 72.9 Lymph % (Auto) 10.1 L [place] % (Auto) 10.7 H Eos % (Auto) 1.2 Baso % (Auto) 0.9 Lymph # (Auto) 1.14 [place] # (Auto) 1.2 H Eos # (Auto) 0.1 Baso # (Auto) 0.1 Abs Immat Gran (auto) 0.47 H Absolute Neuts (auto) 8.2 H Absolute Nucleated RBC 0.0 Nucleated RBC % 0.0 Sodium 141 Potassium 4.0 Chloride 113 H Carbon Dioxide 20 L Anion Gap 8 BUN 20 Creatinine 1.00 Estim Creat Clear Calc 45 Estimated GFR > 60 Glucose 112 H Calcium 8.3 L Total Bilirubin 0.6 AST 43 ALT 37 Alkaline Phosphatase 98 Total Protein 6.0 L Albumin 3.1 L Patient Feedback: Patient satisfied with anesthetic care.
--- NOTE | 2022-05-30 10:48 | PM.IMPN ---
Progress Note: A&P Assessment and Plan (1) Encephalopathy: Code(s): G93.40 - Encephalopathy, unspecified Status: Acute Assessment and Plan: close to baseline (2) CVA (cerebral vascular accident): Qualifiers: CVA mechanism: unspecified Qualified Code(s): I63.9 - Cerebral infarction, unspecified Code(s): I63.9 - Cerebral infarction, unspecified Status: Acute Assessment and Plan: MRI showed large acute infarct in r. mca, multiple old infarcts Appreciate neurology consultation, continue PT/OT rehab pending when able to get nutrition A1c and lipid panel pending slowly improving in facial droop and left lower extremity, left upper extremity appears unchanged with regards to motor function, sensation appears to be improving PEG tube placed. (3) Carotid stenosis: Qualifiers: Laterality: right Qualified Code(s): I65.21 - Occlusion and stenosis of right carotid artery Code(s): I65.29 - Occlusion and stenosis of unspecified carotid artery Status: Acute Assessment and Plan: plavix, aspirin, statin will need vasc surgery consult outpatient (4) BPH (benign prostatic hyperplasia): Code(s): N40.0 - Benign prostatic hyperplasia without lower urinary tract symptoms Status: Acute Assessment and Plan: mesa d/c, voiding well (5) Dysphagia: Code(s): R13.10 - Dysphagia, unspecified Status: Acute Assessment and Plan: Will place NG tube and start tube feedings, patient has now failed swallow studies in several different occasions Started on D5 half-normal saline +20 mEq of potassium until tube feeding order placed will consult GI in anticipation for PEG tube placement continue speech therapy start PPI (6) Emphysema/COPD: Code(s): J43.9 - Emphysema, unspecified Status: Acute Assessment and Plan: currently stable on room air, occasionally gets albuterol nebulizers Plan DVT prophylaxis with SCDs GI prophylaxis with PPI Code status full code Subjective Date/time seen: 05/30/22 10:48 no complaints Exam Narrative: General: No acute distress, alert and oriented per baseline HEENT: Atraumatic, normocephalic, mucous membranes moist CV: Regular rate and rhythm, S1, S2 Lungs: Clear to auscultation bilaterally, no rales or crackles noted, no wheezes, good air entry Abdomen: Soft, nontender, nondistended Extremities: Normal to inspection Skin: No rashes noted, no lesions or wounds seen Psych: Euthymic, normal affect Neuro: Left facial droop remains, appears unchanged from yesterday, left upper extremity 0/5 strength, right upper extremity and right lower extremity 5/5 strength, left lower extremity 3/5 strength, sensation to light touch intact throughout all extremities today Objective Data Vital Signs Vital Signs: Vital Signs - 24 hr 05/29/22 13:30 05/29/22 14:14 05/29/22 14:24 Temperature 97.9 F Pulse Rate 89 89 92 Respiratory Rate 18 28 H 27 H Blood Pressure 112/62 81/53 L 91/59 L Pulse Oximetry 94 93 94 Oxygen Delivery Nasal Cannula Nasal Cannula Nasal Cannula Oxygen Flow Rate 2 2 2 05/29/22 14:34 05/29/22 16:20 05/29/22 16:28 Temperature Pulse Rate 93 90 84 Respiratory Rate 24 H 20 20 Blood Pressure 102/58 L Pulse Oximetry 95 Oxygen Delivery Nasal Cannula Oxygen Flow Rate 2 05/29/22 15:15 05/29/22 20:55 05/29/22 20:55 Temperature 97.7 F Pulse Rate 86 87 84 Respiratory Rate 20 20 Blood Pressure 114/64 Pulse Oximetry 94 92 Oxygen Delivery Nasal Cannula Oxygen Flow Rate 2 05/29/22 21:05 05/29/22 20:55 05/30/22 02:36 Temperature 98.1 F Pulse Rate 85 113 H Respiratory Rate 20 20 Blood Pressure 123/65 Pulse Oximetry 95 99 Oxygen Delivery Nasal Cannula Oxygen Flow Rate 2 05/30/22 03:47 05/30/22 03:57 05/30/22 08:27 Temperature Pulse Rate 105 H 98 90 Respiratory Rate 20 20 18 Blood Pressure Pulse Oxi
--- NOTE | 2022-05-30 13:59 | PCNFU ---
Nutrition Follow-Up Complete: Inadequate oral intake related to NPO status and impaired swallowing/dysphagia as evidence by speech assessment and diet order. Goal: Meet 100% of estimated needs - Goal being met today Pt current nutrition is Jevity 1.2 @ 60 ml/h with 30 ml flushes q4 hours. Goal rate is 65 ml/h 22 hours. Nutrition recommendation: Advance TF to goal rate. Provides 1730 kcals, 80 g protein, 1162 ml free water. Last recorded weight is 65.3 kg. Bowel Motility: No BM charted. Labs Reviewed: Alb 3.1, Na 141, K+ 4.0, Glu 112 Meds Noted: Plavix, protonix Skin: WNL Additional Notes: Discussed TF goal rate with RN, it will be advanced to goal rate 65 ml/h today. Pt will discharge to acute rehab near [facility] on Thursday. follow up Thursday. monitor for any signs of intolerance (tolerance of formula, infusion rate), and wt and labs
[2022-05-31] VITALS (16 sets, daily range): BP systolic 111–126; BP diastolic 69–83; PULSE 75–112; RESP 14–24; TEMP 36.1–36.8; O2SAT 87–94
[2022-05-31] MEDS: ALBUTEROL SULFATE NEB 2.5 MG/3 ML INH INHALATION ×5 (01:32→20:13)
[2022-05-31] MEDS: IPRATROPIUM BR 0.02% INH SOLN 0.5 MG/2.5 ML VIAL INHALATION ×5 (01:32→20:13)
[2022-05-31 06:55] LABS: Basophils Absolute Auto 0.1 K/mm3 (0.0-0.1); Basophils Percent Auto 0.5 % (0.2-1.2); Eosinophils Absolute Auto 0.2 K/mm3 (0-0.3); Eosinophils Percent Auto 1.1 % (0-4.4); Hemoglobin 12.1 g/dL (14.0-18.0); Immature Granulocyte Percent A 2.9 % (0-0.5); Lymphocytes Absolute Auto 0.97 K/mm3 (0.9-3.2); Mean Corpuscular Hemoglobin 29.8 pg (26-34); Mean Corpuscular Volume 96.1 fl (80-100); Mean Platelet Volume 10.6 fl (7.4-10.4); Monocytes Absolute Auto 1.1 K/mm3 (0.1-0.6); Neutrophils Absolute Auto 11.2 K/mm3 (1.3-6.7); Neutrophils Percent Auto 80.5 % (45.5-73.1); Platelet Count Result 416 k/mm3 (150-375); Red Blood Count 4.06 M/mm3 (4.6-6.20); Red Cell Distribution Width 15.9 % (11.5-14.5); White Blood Count 13.9 K/mm3 (4.5-10.0)
[2022-05-31 07:26] LABS: Alanine Aminotransferase 39 U/L (6-50); Albumin Level 3.3 g/dL (3.5-5.1); Alkaline Phosphatase 100 U/L (38-126); Anion Gap 12 mmol/L (8-16); Aspartate Amino Transferase 51 U/L (17-59); Bilirubin,Total 0.5 mg/dL (0.2-1.3); Blood Urea Nitrogen 20 mg/dL (9-20); Calcium 8.6 mg/dL (8.4-10.2); Carbon Dioxide 19 mmol/L (22-30); Chloride 110 mmol/L (98-107); Estimated CRCL calculation 55 ml/min; Estimated Glomerular Filt Rate > 60; Glucose 132 mg/dL (65-110); Potassium 4.1 mmol/L (3.4-5.0); Sodium 141 mmol/L (137-145)
[2022-05-31] MEDS: PANTOPRAZOLE SODIUM IV 40 MG VIAL IV PUSH (08:45)
[2022-05-31] MEDS: TAMSULOSIN HCL 0.4 MG CAPSULE PO (08:45)
[2022-05-31] MEDS: ASPIRIN 81 MG ENTERIC TABLET PO (08:45)
[2022-05-31] MEDS: ATORVASTATIN 40 MG TABLET 80 MG PO (08:45)
--- NOTE | 2022-05-31 11:16 | PM.IMPN ---
Progress Note: A&P Assessment and Plan (1) Encephalopathy: Code(s): G93.40 - Encephalopathy, unspecified Status: Acute Assessment and Plan: close to baseline (2) CVA (cerebral vascular accident): Qualifiers: CVA mechanism: unspecified Qualified Code(s): I63.9 - Cerebral infarction, unspecified Code(s): I63.9 - Cerebral infarction, unspecified Status: Acute Assessment and Plan: MRI showed large acute infarct in r. mca, multiple old infarcts Appreciate neurology consultation, continue PT/OT rehab pending when able to get nutrition A1c and lipid panel pending slowly improving in facial droop and left lower extremity, left upper extremity appears unchanged with regards to motor function, sensation appears to be improving PEG tube placed. (3) Carotid stenosis: Qualifiers: Laterality: right Qualified Code(s): I65.21 - Occlusion and stenosis of right carotid artery Code(s): I65.29 - Occlusion and stenosis of unspecified carotid artery Status: Acute Assessment and Plan: plavix, aspirin, statin will need vasc surgery consult outpatient (4) BPH (benign prostatic hyperplasia): Code(s): N40.0 - Benign prostatic hyperplasia without lower urinary tract symptoms Status: Acute Assessment and Plan: mesa d/c, voiding well (5) Dysphagia: Code(s): R13.10 - Dysphagia, unspecified Status: Acute Assessment and Plan: Will place NG tube and start tube feedings, patient has now failed swallow studies in several different occasions Started on D5 half-normal saline +20 mEq of potassium until tube feeding order placed will consult GI in anticipation for PEG tube placement continue speech therapy start PPI (6) Emphysema/COPD: Code(s): J43.9 - Emphysema, unspecified Status: Acute Assessment and Plan: currently stable on room air, occasionally gets albuterol nebulizers Plan DVT prophylaxis with SCDs GI prophylaxis with PPI Code status full code Subjective Date/time seen: 05/31/22 11:16 No new complaints Exam Narrative: General: No acute distress, alert and oriented per baseline HEENT: Atraumatic, normocephalic, mucous membranes moist CV: Regular rate and rhythm, S1, S2 Lungs: Clear to auscultation bilaterally, no rales or crackles noted, no wheezes, good air entry Abdomen: Soft, nontender, nondistended Extremities: Normal to inspection Skin: No rashes noted, no lesions or wounds seen Psych: Euthymic, normal affect Neuro: Left facial droop remains, appears unchanged from yesterday, left upper extremity 0/5 strength, right upper extremity and right lower extremity 5/5 strength, left lower extremity 3/5 strength, sensation to light touch intact throughout all extremities today Objective Data Vital Signs Vital Signs: Vital Signs - 24 hr 05/30/22 14:51 05/30/22 15:00 05/30/22 18:16 Temperature 98.5 F Pulse Rate 93 90 93 Respiratory Rate 18 18 20 Blood Pressure 104/74 Pulse Oximetry 94 Oxygen Delivery Oxygen Flow Rate 05/30/22 20:00 05/30/22 21:26 05/30/22 21:38 Temperature 97.1 F L Pulse Rate 93 93 76 Respiratory Rate 16 18 Blood Pressure 103/68 Pulse Oximetry 94 92 Oxygen Delivery Nasal Cannula Oxygen Flow Rate 3 05/30/22 21:50 05/31/22 01:33 05/31/22 01:47 Temperature Pulse Rate 77 79 75 Respiratory Rate 18 18 16 Blood Pressure Pulse Oximetry Oxygen Delivery Oxygen Flow Rate 05/31/22 04:35 05/31/22 04:41 05/31/22 06:00 Temperature 96.9 F L Pulse Rate 78 77 103 H Respiratory Rate 14 14 14 Blood Pressure 126/69 Pulse Oximetry 92 Oxygen Delivery Oxygen Flow Rate 05/31/22 07:38 05/31/22 07:38 05/31/22 07:45 Temperature Pulse Rate 98 98 95 Respiratory Rate 18 18 18 Blood Pressure Pulse Oximetry 93 Oxygen Delivery Nasal Cannula Oxygen Flow Rate 3 05/31/22 08:00 Temperature
--- NOTE | 2022-05-31 16:06 | PC.NURSE ---
Called daughter Kim to update her about patients fall
[2022-06-01] VITALS (15 sets, daily range): BP systolic 115–124; BP diastolic 69–79; PULSE 70–116; RESP 14–22; TEMP 36–36.3; O2SAT 88–95
[2022-06-01] MEDS: ALBUTEROL SULFATE NEB 2.5 MG/3 ML INH INHALATION ×7 (00:06→23:57)
[2022-06-01] MEDS: IPRATROPIUM BR 0.02% INH SOLN 0.5 MG/2.5 ML VIAL INHALATION ×7 (00:06→23:57)
--- NOTE | 2022-06-01 05:12 | PC.NURSE ---
feeding placed on hold pt vomited, stat cxr for possible aspiration.
--- NOTE | 2022-06-01 07:01 | PC.NURSE ---
called to report cxr finding to Md gleason impression interstitial prminence noted which may reflect chronic interstitial lung disease patchy opacity at the right lung base may reflect pneumonia vs atelectasis heart normal size, and post cabg. Awaiting call back.
[2022-06-01 07:27] LABS: Basophils Absolute Auto 0.1 K/mm3 (0.0-0.1); Basophils Percent Auto 0.5 % (0.2-1.2); Eosinophils Absolute Auto 0.2 K/mm3 (0-0.3); Hematocrit 40.1 % (42.0-52.0); Hemoglobin 12.7 g/dL (14.0-18.0); Immature Granulocyte Absolute 0.47 K/mm3 (0.00-0.031); Lymphocytes Absolute Auto 1.14 K/mm3 (0.9-3.2); Lymphocytes Percent Auto 7.3 % (18.3-44.2); Mean Corpuscular HGB Conc 31.7 g/dl (32-36); Mean Corpuscular Hemoglobin 29.9 pg (26-34); Mean Corpuscular Volume 94.4 fl (80-100); Mean Platelet Volume 10.2 fl (7.4-10.4); Monocytes Absolute Auto 1.2 K/mm3 (0.1-0.6); Monocytes Percent Auto 7.5 % (2.6-8.5); Neutrophils Absolute Auto 12.7 K/mm3 (1.3-6.7); Neutrophils Percent Auto 80.7 % (45.5-73.1); Platelet Count Result 485 k/mm3 (150-375); Red Blood Count 4.25 M/mm3 (4.6-6.20); Red Cell Distribution Width 15.8 % (11.5-14.5); White Blood Count 15.7 K/mm3 (4.5-10.0)
[2022-06-01 07:44] LABS: Alanine Aminotransferase 43 U/L (6-50); Albumin Level 3.5 g/dL (3.5-5.1); Alkaline Phosphatase 116 U/L (38-126); Anion Gap 13 mmol/L (8-16); Aspartate Amino Transferase 58 U/L (17-59); Bilirubin,Total 0.5 mg/dL (0.2-1.3); Blood Urea Nitrogen 24 mg/dL (9-20); Calcium 8.6 mg/dL (8.4-10.2); Carbon Dioxide 23 mmol/L (22-30); Chloride 108 mmol/L (98-107); Estimated CRCL calculation 49 ml/min; Estimated Glomerular Filt Rate > 60; Glucose 121 mg/dL (65-110); Potassium 4.4 mmol/L (3.4-5.0); Sodium 144 mmol/L (137-145)
[2022-06-01] MEDS: ATORVASTATIN 40 MG TABLET 80 MG PO (11:22)
[2022-06-01] MEDS: ASPIRIN 81 MG ENTERIC TABLET PO (11:22)
[2022-06-01] MEDS: TAMSULOSIN HCL 0.4 MG CAPSULE PO (11:23)
--- NOTE | 2022-06-01 11:23 | PM.IMPN ---
Progress Note: A&P Assessment and Plan (1) Encephalopathy: Code(s): G93.40 - Encephalopathy, unspecified Status: Acute Assessment and Plan: close to baseline (2) CVA (cerebral vascular accident): Qualifiers: CVA mechanism: unspecified Qualified Code(s): I63.9 - Cerebral infarction, unspecified Code(s): I63.9 - Cerebral infarction, unspecified Status: Acute Assessment and Plan: MRI showed large acute infarct in r. mca, multiple old infarcts Appreciate neurology consultation, continue PT/OT rehab pending when able to get nutrition A1c and lipid panel pending slowly improving in facial droop and left lower extremity, left upper extremity appears unchanged with regards to motor function, sensation appears to be improving PEG tube placed. (3) Carotid stenosis: Qualifiers: Laterality: right Qualified Code(s): I65.21 - Occlusion and stenosis of right carotid artery Code(s): I65.29 - Occlusion and stenosis of unspecified carotid artery Status: Acute Assessment and Plan: plavix, aspirin, statin will need vasc surgery consult outpatient (4) BPH (benign prostatic hyperplasia): Code(s): N40.0 - Benign prostatic hyperplasia without lower urinary tract symptoms Status: Acute Assessment and Plan: mesa d/c, voiding well (5) Dysphagia: Code(s): R13.10 - Dysphagia, unspecified Status: Acute Assessment and Plan: Will place NG tube and start tube feedings, patient has now failed swallow studies in several different occasions Started on D5 half-normal saline +20 mEq of potassium until tube feeding order placed will consult GI in anticipation for PEG tube placement continue speech therapy start PPI (6) Emphysema/COPD: Code(s): J43.9 - Emphysema, unspecified Status: Acute Assessment and Plan: currently stable on room air, occasionally gets albuterol nebulizers (7) Pneumonitis, aspiration: Code(s): J69.0 - Pneumonitis due to inhalation of food and vomit Status: Acute Assessment and Plan: patient does have elevated white count, will treat for aspiration pneumonia. Plan DVT prophylaxis with SCDs GI prophylaxis with PPI Code status full code Subjective Date/time seen: 06/01/22 11:23 episode of aspiration Overnite. Exam Narrative: General: No acute distress, alert and oriented per baseline HEENT: Atraumatic, normocephalic, mucous membranes moist CV: Regular rate and rhythm, S1, S2 Lungs: Clear to auscultation bilaterally, no rales or crackles noted, no wheezes, good air entry Abdomen: Soft, nontender, nondistended Extremities: Normal to inspection Skin: No rashes noted, no lesions or wounds seen Psych: Euthymic, normal affect Neuro: Left facial droop remains, appears unchanged from yesterday, left upper extremity 0/5 strength, right upper extremity and right lower extremity 5/5 strength, left lower extremity 3/5 strength, sensation to light touch intact throughout all extremities today Objective Data Vital Signs Vital Signs: Vital Signs - 24 hr 05/31/22 11:27 05/31/22 12:00 05/31/22 13:39 Temperature 98.2 F Pulse Rate 87 88 112 H Respiratory Rate 18 18 24 H Blood Pressure 111/83 Pulse Oximetry 93 Oxygen Delivery Oxygen Flow Rate Fraction of Inspired Oxygen 05/31/22 14:00 05/31/22 19:19 05/31/22 20:11 Temperature 98.2 F Pulse Rate 112 H 110 H Respiratory Rate 24 H 16 Blood Pressure 111/83 Pulse Oximetry 93 93 87 L Oxygen Delivery Nasal Cannula Nasal Cannula Oxygen Flow Rate 3 3 Fraction of Inspired Oxygen 32 05/31/22 20:13 05/31/22 21:30 06/01/22 00:07 Temperature 97.0 F L Pulse Rate 110 H 105 H 98 Respiratory Rate 16 14 14 Blood Pressure 120/77 Pulse Oximetry 94 Oxygen Delivery Oxygen Flow Rate Fraction of Inspired Oxygen 06/01/22 03:57 06/01/22 06:00 06/01/22 08:02 Temperatu
[2022-06-01] MEDS: PANTOPRAZOLE SODIUM IV 40 MG VIAL IV PUSH (11:36)
[2022-06-01] MEDS: AMOXICILLIN/CLAVULANATE K 875-125 MG TAB 1 TABLET PO ×2 (11:37→21:00)
--- NOTE | 2022-06-01 23:31 | PC.NURSE ---
Patient called nurse in the room to tell her that he had pulled out his PEG Tube, patient was asked why the tube was pulled out and he stated It was itching me . Provider Mikayla was notified of incident, Dextrose 10 at 75ml hr is to be given, covered site with gauze and tape and consult to GI. I will continue to monitor patient.
[2022-06-02] VITALS (12 sets, daily range): BP systolic 107–147; BP diastolic 69–70; PULSE 51–102; RESP 16–20; TEMP 35.9–36.8; O2SAT 92–94
[2022-06-02] MEDS: DEXTROSE 10% 1,000 ML 75 ML IV CONT ×2 (00:08→13:00)
[2022-06-02] MEDS: ALBUTEROL SULFATE NEB 2.5 MG/3 ML INH INHALATION ×4 (03:08→20:36)
[2022-06-02] MEDS: IPRATROPIUM BR 0.02% INH SOLN 0.5 MG/2.5 ML VIAL INHALATION ×4 (03:08→20:36)
[2022-06-02 06:15] LABS: Basophils Absolute Auto 0.1 K/mm3 (0.0-0.1); Basophils Percent Auto 0.8 % (0.2-1.2); Eosinophils Absolute Auto 0.1 K/mm3 (0-0.3); Eosinophils Percent Auto 0.5 % (0-4.4); Hematocrit 40.5 % (42.0-52.0); Hemoglobin 12.6 g/dL (14.0-18.0); Immature Granulocyte Absolute 0.44 K/mm3 (0.00-0.031); Immature Granulocyte Percent A 2.8 % (0-0.5); Lymphocytes Percent Auto 7.1 % (18.3-44.2); Mean Corpuscular HGB Conc 31.1 g/dl (32-36); Mean Corpuscular Hemoglobin 28.8 pg (26-34); Mean Corpuscular Volume 92.5 fl (80-100); Mean Platelet Volume 9.7 fl (7.4-10.4); Monocytes Percent Auto 6.4 % (2.6-8.5); Neutrophils Absolute Auto 12.9 K/mm3 (1.3-6.7); Neutrophils Percent Auto 82.4 % (45.5-73.1); Platelet Count Result 520 k/mm3 (150-375); Red Blood Count 4.38 M/mm3 (4.6-6.20); Red Cell Distribution Width 15.4 % (11.5-14.5); White Blood Count 15.6 K/mm3 (4.5-10.0)
[2022-06-02 06:27] LABS: Alanine Aminotransferase 45 U/L (6-50); Albumin Level 3.7 g/dL (3.5-5.1); Alkaline Phosphatase 127 U/L (38-126); Anion Gap 15 mmol/L (8-16); Aspartate Amino Transferase 63 U/L (17-59); Bilirubin,Total 0.7 mg/dL (0.2-1.3); Blood Urea Nitrogen 27 mg/dL (9-20); Calcium 8.9 mg/dL (8.4-10.2); Carbon Dioxide 24 mmol/L (22-30); Chloride 107 mmol/L (98-107); Estimated CRCL calculation 49 ml/min; Estimated Glomerular Filt Rate > 60; Glucose 116 mg/dL (65-110); Potassium 4.4 mmol/L (3.4-5.0); Sodium 146 mmol/L (137-145)
--- NOTE | 2022-06-02 10:55 | PM.IMPN ---
Progress Note: A&P Assessment and Plan (1) Encephalopathy: Code(s): G93.40 - Encephalopathy, unspecified Status: Acute Assessment and Plan: at baseline (2) CVA (cerebral vascular accident): Qualifiers: CVA mechanism: unspecified Qualified Code(s): I63.9 - Cerebral infarction, unspecified Code(s): I63.9 - Cerebral infarction, unspecified Status: Acute Assessment and Plan: MRI showed large acute infarct in r. mca, multiple old infarcts Appreciate neurology consultation, continue PT/OT rehab pending when able to get nutrition A1c and lipid panel pending slowly improving in facial droop and left lower extremity, left upper extremity appears unchanged with regards to motor function, sensation appears to be improving PEG tube placed but was pulled overnight. GI consult. (3) Carotid stenosis: Qualifiers: Laterality: right Qualified Code(s): I65.21 - Occlusion and stenosis of right carotid artery Code(s): I65.29 - Occlusion and stenosis of unspecified carotid artery Status: Acute Assessment and Plan: plavix, aspirin, statin will need vasc surgery consult outpatient (4) BPH (benign prostatic hyperplasia): Code(s): N40.0 - Benign prostatic hyperplasia without lower urinary tract symptoms Status: Acute Assessment and Plan: mesa d/c, voiding well (5) Dysphagia: Code(s): R13.10 - Dysphagia, unspecified Status: Acute Assessment and Plan: Will place NG tube and start tube feedings, patient has now failed swallow studies in several different occasions Started on D5 half-normal saline +20 mEq of potassium until tube feeding order placed will consult GI in anticipation for PEG tube placement continue speech therapy start PPI (6) Emphysema/COPD: Code(s): J43.9 - Emphysema, unspecified Status: Acute Assessment and Plan: currently stable on room air, occasionally gets albuterol nebulizers (7) Pneumonitis, aspiration: Code(s): J69.0 - Pneumonitis due to inhalation of food and vomit Status: Acute Assessment and Plan: patient does have elevated white count, will treat for aspiration pneumonia. Plan DVT prophylaxis with SCDs GI prophylaxis with PPI Code status full code Subjective Date/time seen: 06/02/22 10:55 patient pulled out PEG tube overnight Exam Narrative: General: No acute distress, alert and oriented per baseline HEENT: Atraumatic, normocephalic, mucous membranes moist CV: Regular rate and rhythm, S1, S2 Lungs: Clear to auscultation bilaterally, no rales or crackles noted, no wheezes, good air entry Abdomen: Soft, nontender, nondistended Extremities: Normal to inspection Skin: No rashes noted, no lesions or wounds seen Psych: Euthymic, normal affect Neuro: Left facial droop remains, appears unchanged from yesterday, left upper extremity 0/5 strength, right upper extremity and right lower extremity 5/5 strength, left lower extremity 3/5 strength, sensation to light touch intact throughout all extremities today Objective Data Vital Signs Vital Signs: Vital Signs - 24 hr 06/01/22 11:14 06/01/22 14:00 06/01/22 15:48 Temperature 96.8 F L Pulse Rate 92 96 88 Respiratory Rate 16 14 16 Blood Pressure 115/79 Pulse Oximetry 93 Oxygen Delivery 06/01/22 16:01 06/01/22 12:00 06/01/22 20:40 Temperature Pulse Rate 92 70 Respiratory Rate 16 16 Blood Pressure Pulse Oximetry 95 Oxygen Delivery Room Air 06/01/22 20:47 06/01/22 22:00 06/01/22 23:59 Temperature 97.4 F L Pulse Rate 81 116 H 89 Respiratory Rate 16 22 H 15 Blood Pressure 119/79 Pulse Oximetry 88 L Oxygen Delivery 06/02/22 03:08 06/02/22 06:00 06/02/22 07:54 Temperature 97.9 F Pulse Rate 84 102 H 92 Respiratory Rate 16 20 16 Blood Pressure 147/69 H Pulse Oximetry 94 Oxygen Delivery 06/02/22 08:01 06/02/22 08:05 T
--- NOTE | 2022-06-02 14:05 | PCRCNOTE ---
Window of time for administration has passed. See next scheduled administration.
[2022-06-03] VITALS (15 sets, daily range): BP systolic 120–142; BP diastolic 72–90; PULSE 79–130; RESP 14–22; TEMP 36.1–36.4; O2SAT 90–96
[2022-06-03] MEDS: ALBUTEROL SULFATE NEB 2.5 MG/3 ML INH INHALATION ×6 (00:09→22:34)
[2022-06-03] MEDS: IPRATROPIUM BR 0.02% INH SOLN 0.5 MG/2.5 ML VIAL INHALATION ×6 (00:10→22:33)
[2022-06-03] MEDS: DEXTROSE 10% 1,000 ML 75 ML IV CONT (06:47)
[2022-06-03 08:59] LABS: Anion Gap 13 mmol/L (8-16); Blood Urea Nitrogen 21 mg/dL (9-20); Calcium 8.6 mg/dL (8.4-10.2); Carbon Dioxide 21 mmol/L (22-30); Chloride 103 mmol/L (98-107); Estimated CRCL calculation 55 ml/min; Estimated Glomerular Filt Rate > 60; Glucose 138 mg/dL (65-110); Potassium 4.1 mmol/L (3.4-5.0); Sodium 137 mmol/L (137-145)
[2022-06-03] MEDS: PANTOPRAZOLE SODIUM IV 40 MG VIAL IV PUSH (09:31)
--- NOTE | 2022-06-03 10:40 | PM.IMPN ---
Progress Note: A&P Assessment and Plan (1) Encephalopathy: Code(s): G93.40 - Encephalopathy, unspecified Status: Acute Assessment and Plan: at baseline (2) CVA (cerebral vascular accident): Qualifiers: CVA mechanism: unspecified Qualified Code(s): I63.9 - Cerebral infarction, unspecified Code(s): I63.9 - Cerebral infarction, unspecified Status: Acute Assessment and Plan: MRI showed large acute infarct in r. mca, multiple old infarcts Appreciate neurology consultation, continue PT/OT rehab pending when able to get nutrition continue aspirin Plavix slowly improving in facial droop and left lower extremity, left upper extremity appears unchanged with regards to motor function, sensation appears to be improving PEG tube placed but was pulled. GI to replace PEG tube today patient can likely be discharged tomorrow (3) Carotid stenosis: Qualifiers: Laterality: right Qualified Code(s): I65.21 - Occlusion and stenosis of right carotid artery Code(s): I65.29 - Occlusion and stenosis of unspecified carotid artery Status: Acute Assessment and Plan: plavix, aspirin, statin will need vasc surgery consult outpatient (4) BPH (benign prostatic hyperplasia): Code(s): N40.0 - Benign prostatic hyperplasia without lower urinary tract symptoms Status: Acute Assessment and Plan: mesa d/c, voiding well (5) Dysphagia: Code(s): R13.10 - Dysphagia, unspecified Status: Acute Assessment and Plan: PEG tube (6) Emphysema/COPD: Code(s): J43.9 - Emphysema, unspecified Status: Acute Assessment and Plan: currently stable on room air, occasionally gets albuterol nebulizers (7) Pneumonitis, aspiration: Code(s): J69.0 - Pneumonitis due to inhalation of food and vomit Status: Acute Assessment and Plan: patient does have elevated white count, will treat for aspiration pneumonia. continue oral Augmentin Subjective Date/time seen: 06/03/22 10:40 patient has no new complaints Exam Narrative: General: No acute distress, alert and oriented per baseline HEENT: Atraumatic, normocephalic, mucous membranes moist CV: Regular rate and rhythm, S1, S2 Lungs: Clear to auscultation bilaterally, no rales or crackles noted, no wheezes, good air entry Abdomen: Soft, nontender, nondistended Extremities: Normal to inspection Skin: No rashes noted, no lesions or wounds seen Psych: Euthymic, normal affect Neuro: Left facial droop remains, appears unchanged from yesterday, left upper extremity 0/5 strength, right upper extremity and right lower extremity 5/5 strength, left lower extremity 3/5 strength, sensation to light touch intact throughout all extremities today Objective Data Vital Signs Vital Signs: Vital Signs - 24 hr 06/02/22 15:27 06/02/22 15:37 06/02/22 15:30 Temperature 96.7 F L Pulse Rate 97 91 98 Respiratory Rate 16 16 18 Blood Pressure 107/70 Pulse Oximetry 92 Oxygen Delivery 06/02/22 20:37 06/02/22 20:39 06/02/22 20:47 Temperature Pulse Rate 88 87 Respiratory Rate 16 16 Blood Pressure Pulse Oximetry 92 Oxygen Delivery Room Air 06/02/22 22:00 06/02/22 20:00 06/03/22 00:10 Temperature 98.2 F Pulse Rate 51 L 80 Respiratory Rate 16 16 Blood Pressure 129/70 Pulse Oximetry 94 Oxygen Delivery Room Air 06/03/22 00:21 06/03/22 05:15 06/03/22 05:25 Temperature Pulse Rate 82 80 79 Respiratory Rate 16 16 16 Blood Pressure Pulse Oximetry Oxygen Delivery 06/03/22 06:00 06/03/22 07:48 06/03/22 07:48 Temperature 97.5 F L Pulse Rate 100 96 Respiratory Rate 14 16 Blood Pressure 142/90 H Pulse Oximetry 90 92 Oxygen Delivery Room Air 06/03/22 07:58 Temperature Pulse Rate 84 Respiratory Rate 16 Blood Pressure Pulse Oximetry Oxygen Delivery Intake/Output Intake/Output: Int
--- NOTE | 2022-06-03 10:47 | PCNFU ---
Nutrition Follow-Up Complete: Inadequate oral intake related to NPO status and impaired swallowing/dysphagia as evidence by speech assessment and diet order. goal: Meet 100% of estimated needs Patient no meeting goal at this time. Will continue current goal. Pt current nutrition is NPO. Nutrition recommendation: Jevity 1.2 at 20 ml/hr advance by 10 ml to goal rate at 65 ml/hr. Last recorded weight is 64.7 kg, up from 62.8 kg on admit. Bowel Motility:No BM reported. Labs Reviewed:Glu 116, Na 146, Hct 40.5,Hgb 12.6 Meds Noted:Protonix,Plavix Skin: WNL Additional Notes: Patient pulled PEG. Plans for replacement today. Tube feedings recommendations: Jevity 1.2 at 20 ml/hr advance by 10 ml to goal rate at 65 ml/hr. Providing 1716 kcals/80 gms protein/1154 ml water. Free water flush 30 ml q 4hours. Agree with diet orders. monitoring for any signs of intolerance (tolerance of formula, infusion rate), and wt and labs every Thursday and Thursday.
--- NOTE | 2022-06-03 10:54 | WPDGIPROGNO ---
Progress Note: A&P Assessment and Plan (1) PEG (percutaneous endoscopic gastrostomy) status: Code(s): Z93.1 - Gastrostomy status Status: Acute Assessment and Plan: Apparently displaced several days ago. Now with perforated viscus. No obvious signs of infection will give broad-spectrum antibiotics. Patient will need NG tube for immediate nutrition. Replace PEG tube will attempt this tomorrow with EGD and PEG placement at that time. Repeat labs to determine current status today. (2) Dysphagia: Code(s): R13.10 - Dysphagia, unspecified Status: Acute Assessment and Plan: Oropharyngeal dysphagia likely secondary CVA. (3) CVA (cerebral vascular accident): Qualifiers: CVA mechanism: unspecified Qualified Code(s): I63.9 - Cerebral infarction, unspecified Code(s): I63.9 - Cerebral infarction, unspecified Status: Acute Subjective Date/time seen: 06/03/22 10:54 Asked to follow up on patient today. Apparently patient had PEG tube pulled out the evening of 06/01/2022. Patient with history of recent CVA as unable to add any useful history. Review of Systems Review of Systems: ROS unobtainable: Yes unobtainable due to mental status Exam Narrative: Physical exam reveals patient be alert at bed rest HEENT exam unchanged. Patient afebrile anicteric. Some facial droop noted. Left-sided weakness. Lungs are clear. Heart without murmur. Abdomen bowel sounds present soft nontender peg tube site left upper quadrant with small amount of serous drainage identified. Objective Data Vital Signs Vital Signs: Vital Signs - 24 hr 06/02/22 15:27 06/02/22 15:37 06/02/22 15:30 Temperature 96.7 F L Pulse Rate 97 91 98 Respiratory Rate 16 16 18 Blood Pressure 107/70 Pulse Oximetry 92 Oxygen Delivery 06/02/22 20:37 06/02/22 20:39 06/02/22 20:47 Temperature Pulse Rate 88 87 Respiratory Rate 16 16 Blood Pressure Pulse Oximetry 92 Oxygen Delivery Room Air 06/02/22 22:00 06/02/22 20:00 06/03/22 00:10 Temperature 98.2 F Pulse Rate 51 L 80 Respiratory Rate 16 16 Blood Pressure 129/70 Pulse Oximetry 94 Oxygen Delivery Room Air 06/03/22 00:21 06/03/22 05:15 06/03/22 05:25 Temperature Pulse Rate 82 80 79 Respiratory Rate 16 16 16 Blood Pressure Pulse Oximetry Oxygen Delivery 06/03/22 06:00 06/03/22 07:48 06/03/22 07:48 Temperature 97.5 F L Pulse Rate 100 96 Respiratory Rate 14 16 Blood Pressure 142/90 H Pulse Oximetry 90 92 Oxygen Delivery Room Air 06/03/22 07:58 Temperature Pulse Rate 84 Respiratory Rate 16 Blood Pressure Pulse Oximetry Oxygen Delivery Intake/Output Intake/Output: Intake & Output 05/31/22 06/01/22 06/02/22 06/03/22 23:59 23:59 23:59 23:59 Intake Total 0 0 1000 1000 Output Total 850 450 750 450 Balance -850 -450 250 550 Meds/Results Medications: Active Medications Generic Name Dose Route Start Last Admin Trade Name Lauryn PRN Reason Stop Dose Admin Albuterol 2.5 mg 05/28/22 08:00 06/03/22 07:47 Albuterol Sulfate Neb 2.5 Mg/3 Ml Inh INHALATION 2.5 mg Q4HRT FREDDY Administration Amoxicillin/Clavulanate Potassium 1 tablet 06/01/22 09:00 06/03/22 06:46 Amoxicillin/Clavulanate K 875-125 Mg Tab PO Not Given Q12HR FREDDY Aspirin 81 mg 05/23/22 09:00 06/02/22 07:57 Aspirin 81 Mg Enteric Tablet PO Not Given QAM FREDDY Atorvastatin Calcium 80 mg 05/27/22 09:00 06/02/22 07:57 Atorvastatin 40 Mg Tablet PO Not Given DAILY FREDDY Clopidogrel Bisulfate 75 mg 05/23/22 09:00 05/27/22 09:32 Clopidogrel Bisulfate 75 Mg Tablet PO 75 mg QAM FREDDY Administration Potassium Chloride/Dextrose/Sod Cl 1,000 mls @ 100 mls/hr 05/27/22 09:15 05/28/22 12:24 Kcl 20 Meq/D5/0.45% Sod Chl IV CONT Infused .Q10H FREDDY Infusion Dextrose 1,000 mls @ 75 mls/hr 06/01/22 23:30 06/03/22 06:47 Dextrose 10% IV CONT 75 m
[2022-06-03 11:05] LABS: Basophils Absolute Auto 0.1 K/mm3 (0.0-0.1); Basophils Percent Auto 0.5 % (0.2-1.2); Eosinophils Absolute Auto 0.1 K/mm3 (0-0.3); Eosinophils Percent Auto 0.4 % (0-4.4); Hematocrit 40.3 % (42.0-52.0); Hemoglobin 12.8 g/dL (14.0-18.0); Immature Granulocyte Absolute 0.36 K/mm3 (0.00-0.031); Immature Granulocyte Percent A 2.3 % (0-0.5); Lymphocytes Absolute Auto 1.27 K/mm3 (0.9-3.2); Lymphocytes Percent Auto 8.2 % (18.3-44.2); Mean Corpuscular HGB Conc 31.8 g/dl (32-36); Mean Corpuscular Hemoglobin 29.8 pg (26-34); Mean Corpuscular Volume 93.9 fl (80-100); Monocytes Absolute Auto 1.2 K/mm3 (0.1-0.6); Monocytes Percent Auto 7.6 % (2.6-8.5); Neutrophils Absolute Auto 12.5 K/mm3 (1.3-6.7); Platelet Count Result 508 k/mm3 (150-375); Red Blood Count 4.29 M/mm3 (4.6-6.20); Red Cell Distribution Width 15.3 % (11.5-14.5); White Blood Count 15.4 K/mm3 (4.5-10.0)
[2022-06-03 12:27] LABS: INR 1.3; Partial Thromboplastin Time 30.1 SECONDS (22.3-36.8); Prothrombin Time 15.3 Seconds (11.1-14.7)
--- NOTE | 2022-06-03 13:47 | PCOTNOTE ---
Was going to attempt to see patient for OT, patient going for dobhoff tube placement with patient transport. Will continue OT plan of care.
--- NOTE | 2022-06-03 14:10 | PC.NURSE ---
pt to radiology for dobhoff placement
--- NOTE | 2022-06-03 14:27 | PCPTNOTE ---
The patient treatment was not able to be completed on 06/03/2022 due to patient out of room for procedure. Will plan to continue treatment per plan of care.
[2022-06-03] MEDS: ASPIRIN 81 MG ENTERIC TABLET PO (16:32)
[2022-06-03] MEDS: AMOXICILLIN/CLAVULANATE K 875-125 MG TAB 1 TABLET PO ×2 (16:32→20:35)
[2022-06-03] MEDS: ATORVASTATIN 40 MG TABLET 80 MG PO (16:32)
[2022-06-04] VITALS (15 sets, daily range): BP systolic 106–119; BP diastolic 72–93; PULSE 72–104; RESP 16–24; TEMP 35.5–36.6; O2SAT 92–97
[2022-06-04] MEDS: DEXTROSE 10% 1,000 ML 75 ML IV CONT (00:12)
[2022-06-04] MEDS: ALBUTEROL SULFATE NEB 2.5 MG/3 ML INH INHALATION ×6 (01:25→20:17)
[2022-06-04] MEDS: IPRATROPIUM BR 0.02% INH SOLN 0.5 MG/2.5 ML VIAL INHALATION ×5 (01:25→20:17)
[2022-06-04 06:49] LABS: Anion Gap 11 mmol/L (8-16); Blood Urea Nitrogen 19 mg/dL (9-20); Calcium 8.4 mg/dL (8.4-10.2); Carbon Dioxide 21 mmol/L (22-30); Chloride 100 mmol/L (98-107); Estimated CRCL calculation 49 ml/min; Estimated Glomerular Filt Rate > 60; Glucose 110 mg/dL (65-110); Potassium 4.4 mmol/L (3.4-5.0); Sodium 132 mmol/L (137-145)
[2022-06-04 07:03] LABS: Basophils Absolute Auto 0.1 K/mm3 (0.0-0.1); Basophils Percent Auto 0.3 % (0.2-1.2); Eosinophils Percent Auto 0.2 % (0-4.4); Hematocrit 38.6 % (42.0-52.0); Hemoglobin 12.5 g/dL (14.0-18.0); Immature Granulocyte Absolute 0.35 K/mm3 (0.00-0.031); Lymphocytes Absolute Auto 1.44 K/mm3 (0.9-3.2); Lymphocytes Percent Auto 8.1 % (18.3-44.2); Mean Corpuscular HGB Conc 32.4 g/dl (32-36); Mean Corpuscular Hemoglobin 29.2 pg (26-34); Mean Corpuscular Volume 90.2 fl (80-100); Mean Platelet Volume 9.8 fl (7.4-10.4); Monocytes Absolute Auto 1.7 K/mm3 (0.1-0.6); Monocytes Percent Auto 9.6 % (2.6-8.5); Neutrophils Absolute Auto 14.2 K/mm3 (1.3-6.7); Neutrophils Percent Auto 79.8 % (45.5-73.1); Platelet Count Result 481 k/mm3 (150-375); Red Blood Count 4.28 M/mm3 (4.6-6.20); Red Cell Distribution Width 14.9 % (11.5-14.5); White Blood Count 17.8 K/mm3 (4.5-10.0)
--- NOTE | 2022-06-04 08:30 | PCOTNOTE ---
Attempted to see patient this am, however patient refused due to back pain. RN notified.
[2022-06-04] MEDS: PANTOPRAZOLE SODIUM IV 40 MG VIAL IV PUSH (09:24)
--- NOTE | 2022-06-04 11:30 | PC.NURSE ---
Pt down to GI lab for G tube placement
[2022-06-04] MEDS: LACTATED RINGERS 1,000 ML 150 ML IV CONT (11:39)
--- NOTE | 2022-06-04 11:46 | WPDANESEPPF ---
Anes - Initial Pre Proc Eval Procedure: Operation Date: 05/29/22 13:00 Proposed Procedures p Percutaneous Endoscopic Gastrostomy - Dwayne Chopra MD Operation Date: 06/04/22 12:00 Proposed Procedures p Percutaneous Endoscopic Gastrostomy - Dwayne Chopra MD Date/Time: 06/04/22 11:46 Surgeon: Jerrica Grullon DO Pre Op Diagnosis: CVA,Renal Insufficiency,Elevated Troponin Patient Data Age: 76 Gender: M Height: 1.6 m Weight: 55.5 kg Last Vital Signs Temp 97.4 F L 06/04/22 11:38 Pulse 102 H 06/04/22 11:38 Resp 22 H 06/04/22 11:38 BP 106/82 06/04/22 11:38 Pulse Ox 93 06/04/22 11:38 O2 Del Method Room Air 06/04/22 11:38 O2 Flow Rate 3 06/01/22 08:02 FiO2 32 06/01/22 08:02 Allergies Allergy/AdvReac Type Severity Reaction Status Date / Time No Known Allergies Allergy Verified 05/22/22 20:26 Home Medications Medication Instructions Recorded Confirmed Type aspirin 325 mg capsule 325 mg PO DAILY 05/24/22 05/24/22 History Laboratory Tests 06/03/22 06/04/22 06/04/22 11:57 06:17 06:17 WBC 17.8 K/mm3 H K/mm3 (4.5-10.0) RBC 4.28 M/mm3 L M/mm3 (4.6-6.20) Hgb 12.5 g/dL L g/dL (14.0-18.0) Hct 38.6 % L % (42.0-52.0) MCV 90.2 fl fl (80-100) MCH 29.2 pg pg (26-34) MCHC 32.4 g/dl g/dl (32-36) RDW 14.9 % H % (11.5-14.5) Plt Count 481 k/mm3 H k/mm3 (150-375) MPV 9.8 fl fl (7.4-10.4) Immature Gran % (Auto) 2.0 % H % (0-0.5) Neut % (Auto) 79.8 % H % (45.5-73.1) Lymph % (Auto) 8.1 % L % (18.3-44.2) [place] % (Auto) 9.6 % H % (2.6-8.5) Eos % (Auto) 0.2 % % (0-4.4) Baso % (Auto) 0.3 % % (0.2-1.2) Lymph # (Auto) 1.44 K/mm3 K/mm3 (0.9-3.2) [place] # (Auto) 1.7 K/mm3 H K/mm3 (0.1-0.6) Eos # (Auto) 0.0 K/mm3 K/mm3 (0-0.3) Baso # (Auto) 0.1 K/mm3 K/mm3 (0.0-0.1) Abs Immat Gran (auto) 0.35 K/mm3 H K/mm3 (0.00-0.031) Absolute Neuts (auto) 14.2 K/mm3 H K/mm3 (1.3-6.7) Absolute Nucleated RBC 0.0 K/mm3 K/mm3 (0.0-0.012) Nucleated RBC % 0.0 % % (0.0-0.2) PT 15.3 Seconds H Seconds (11.1-14.7) INR 1.3 APTT 30.1 SECONDS SECONDS (22.3-36.8) Sodium 132 mmol/L L mmol/L (137-145) Potassium 4.4 mmol/L mmol/L (3.4-5.0) Chloride 100 mmol/L mmol/L (98-107) Carbon Dioxide 21 mmol/L L mmol/L (22-30) Anion Gap 11 mmol/L mmol/L (8-16) BUN 19 mg/dL mg/dL (9-20) Creatinine 0.90 mg/dL mg/dL (0.7-1.3) Estim Creat Clear Calc 49 ml/min ml/min Estimated GFR > 60 (59 - ) Glucose 110 mg/dL mg/dL (65-110) Calcium 8.4 mg/dL mg/dL (8.4-10.2) Patient hx anesthesia problems: none Family hx anesthesia problems: none Results Review: All pre-operative results and documents have been reviewed as part of the pre-operative evaluation. [facility] Past Medical History Medical History (Updated 06/01/22 @ 11:24 by Nakul Castro MD) BPH (benign prostatic hyperplasia) Carotid stenosis CVA (cerebral vascular accident) (~05/2021) Emphysema/COPD Essential hypertension Hyperlipidemia Ischemic cardiomyopathy Surgical History Surgical History (Updated 05/30/22 @ 08:33 by Dwayne Chopra MD) History of left-sided carotid endarterectomy (~2020) Hx of CABG (~1990) 3 vessel CABG Family History Family History Mother Heart problem Natural of unknown etiology Father Smoking COPD (chronic obstructive pulmonary disease) Social History Social History Social History: Code status: Full code Surrogate decision maker: Kim Hudson (daughter) Smoking packs per day:
--- NOTE | 2022-06-04 13:10 | PCPTNOTE ---
The patient treatment was not able to be completed today due to patient out of room for PEG placement procedure. Will plan to continue treatment per plan of care.
--- NOTE | 2022-06-04 13:10 | WPDGIPROGNO ---
Progress Note: A&P Assessment and Plan (1) PEG (percutaneous endoscopic gastrostomy) status: Code(s): Z93.1 - Gastrostomy status Status: Acute Assessment and Plan: Peg tube initially planned to be replaced today was Dislodged several days ago. unable to place PEG tube in the GI lab today because of lack of Anesthesia support. We will reschedule for . Patient has developed leukocytosis. Obstructive series unremarkable. Plan to check chest x-ray. (2) Leukocytosis: Code(s): D72.829 - Elevated white blood cell count, unspecified Status: Acute Assessment and Plan: Elevated white count of uncertain nature patient had admitted with aspiration pneumonitis will repeat chest x-ray today. PEG tube in the morning (3) CVA (cerebral vascular accident): Qualifiers: CVA mechanism: unspecified Qualified Code(s): I63.9 - Cerebral infarction, unspecified Code(s): I63.9 - Cerebral infarction, unspecified Status: Acute Assessment and Plan: patient unable to swallow safely because of CVA. Has hemiparesis. PEG tube initially placed last week was dislodged several days ago. Will need to be replaced for nutritional support. Dobbhoff placed last evening for support until PEG tube can be replaced. Subjective Date/time seen: 06/04/22 13:10 Patient alert comfortable. Unable to speak unable to add any useful insight. NG tube placed for nutrition not yet being utilized. Review of Systems Review of Systems: ROS unobtainable: Yes unobtainable due to medical condition Exam Narrative: Physical exam reveals patient be alert afebrile anicteric vital signs stable. Lungs are clear. Heart without murmur. Abdomen bowel sounds present soft PEG site left upper quadrant draining some serous material. Objective Data Vital Signs Vital Signs: Vital Signs - 24 hr 06/03/22 14:00 06/03/22 17:03 06/03/22 17:13 Temperature 97.2 F L Pulse Rate 130 H 92 96 Respiratory Rate 22 H 18 18 Blood Pressure 120/73 Pulse Oximetry 96 Oxygen Delivery 06/03/22 20:00 06/03/22 22:36 06/03/22 22:36 Temperature Pulse Rate 96 Respiratory Rate 18 Blood Pressure Pulse Oximetry 92 Oxygen Delivery Room Air Room Air 06/03/22 22:00 06/04/22 01:29 06/03/22 22:50 Temperature 97 F L Pulse Rate 103 H 99 101 H Respiratory Rate 22 H 18 18 Blood Pressure 120/72 Pulse Oximetry 92 Oxygen Delivery 06/04/22 05:18 06/04/22 01:42 06/04/22 05:32 Temperature Pulse Rate 97 102 H 99 Respiratory Rate 18 18 18 Blood Pressure Pulse Oximetry Oxygen Delivery 06/04/22 06:00 06/04/22 08:50 06/04/22 08:59 Temperature 96 F L Pulse Rate 104 H 95 90 Respiratory Rate 22 H 18 18 Blood Pressure 119/74 Pulse Oximetry 92 Oxygen Delivery 06/04/22 09:00 06/04/22 09:25 06/04/22 11:38 Temperature 97.4 F L Pulse Rate 102 H Respiratory Rate 22 H Blood Pressure 106/82 Pulse Oximetry 93 93 Oxygen Delivery Room Air Room Air Room Air Intake/Output Intake/Output: Intake & Output 06/01/22 06/02/22 06/03/22 06/04/22 23:59 23:59 23:59 23:59 Intake Total 0 1000 2260 650 Output Total 450 750 950 675 Balance -720 134 6276 -25 Meds/Results Medications: Active Medications Generic Name Dose Route Start Last Admin Trade Name Freq PRN Reason Stop Dose Admin Albuterol 2.5 mg 05/28/22 08:00 06/04/22 12:52 Albuterol Sulfate Neb 2.5 Mg/3 Ml Inh INHALATION Not Given Q4HRT [facility] Amoxicillin/Clavulanate Potassium 1 tablet 06/01/22 09:00 06/04/22 08:21 Amoxicillin/Clavulanate K 875-125 Mg Tab PO Not Given Q12HR [facility] Aspirin 81 mg 05/23/22 09:00 06/04/22 08:21 Aspirin 81 Mg Enteric Tablet PO Not Given QAM [facility] Atorvastatin Calcium 80 mg 05/27/22 09:00 06/04/22 08:21 Atorvastatin 40 Mg Tablet PO Not Given DAILY [facility] Clopidogrel Bisulfate 75 mg 05/23/22 09:00 05/27/22 09:32 Clopi
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
[2022-06-04] MEDS: AMOXICILLIN/CLAVULANATE K 875-125 MG TAB 1 TABLET PO (21:05)
[2022-06-04] MEDS: DEXTROSE 5%/0.9% SOD CHL 1,000 ML 60 ML IV CONT (21:58)
[2022-06-05 00:50] VITALS: PULSE 88; PULSE 90; RESP 20
[2022-06-05] MEDS: IPRATROPIUM BR 0.02% INH SOLN 0.5 MG/2.5 ML VIAL INHALATION ×2 (00:50→03:43)
[2022-06-05 03:44] VITALS: PULSE 85; RESP 20
[2022-06-05] MEDS: ALBUTEROL SULFATE NEB 2.5 MG/3 ML INH INHALATION (03:44)
[2022-06-05 03:55] VITALS: PULSE 83; RESP 20
[2022-06-05 06:00] VITALS: BP 110/75; PULSE 97; RESP 16; TEMP 36.3; O2SAT 95
--- NOTE | 2022-06-05 07:09 | WPDGIPROGNO ---
Progress Note: A&P Assessment and Plan (1) PEG (percutaneous endoscopic gastrostomy) status: Code(s): Z93.1 - Gastrostomy status Status: Acute Assessment and Plan: Patient's PEG placed a week ago has become dislodged. Continues have some drainage at the PEG tube site. White count continues to be elevated at 17. There is some concern for peritonitis at this site where PEG was removed. Plan to defer PEG tube. Repeat modified barium swallow is patient appears to have some clinical improvement now speaking and may be improving with speech, swallow therapy. Consider placing PEG and a day or 2 if drainage to minutes is an white count decreases. (2) CVA (cerebral vascular accident): Qualifiers: CVA mechanism: unspecified Qualified Code(s): I63.9 - Cerebral infarction, unspecified Code(s): I63.9 - Cerebral infarction, unspecified Status: Acute Assessment and Plan: Patient with CVA. Appears be the etiology for or pharyngeal dysphagia. Subjective Date/time seen: 06/05/22 07:09 Patient alert this morning. Starting to speak some. Reports some tenderness a prior PEG site. Review of Systems Review of Systems: Review of systems noncontributory. Exam Narrative: Physical exam reveals patient be alert. Vital signs stable. He is anicteric. Afebrile. Lungs are clear. Heart without murmur. Abdomen bowel sounds present soft no localized tenderness. He has continues to have some drainage at PEG tube site. Objective Data Vital Signs Vital Signs: Vital Signs - 24 hr 06/04/22 08:50 06/04/22 08:59 06/04/22 09:00 Temperature Pulse Rate 95 90 Respiratory Rate 18 18 Blood Pressure Pulse Oximetry 93 Oxygen Delivery Room Air 06/04/22 09:25 06/04/22 11:38 06/04/22 14:00 Temperature 97.4 F L 97.2 F L Pulse Rate 102 H 102 H Respiratory Rate 22 H 20 Blood Pressure 106/82 106/93 H Pulse Oximetry 93 97 Oxygen Delivery Room Air Room Air 06/04/22 17:19 06/04/22 17:29 06/04/22 20:10 Temperature Pulse Rate 88 86 Respiratory Rate 22 H 22 H Blood Pressure Pulse Oximetry 92 Oxygen Delivery Room Air 06/04/22 20:10 06/04/22 20:20 10/12/22 20:20 Temperature Pulse Rate 89 72 Respiratory Rate 24 H 24 H Blood Pressure Pulse Oximetry 92 Oxygen Delivery 06/04/22 21:33 06/04/22 20:00 06/05/22 00:50 Temperature 98 F Pulse Rate 99 90 Respiratory Rate 16 20 Blood Pressure 107/72 Pulse Oximetry 92 Oxygen Delivery Room Air 06/05/22 00:50 06/05/22 03:44 06/05/22 03:55 Temperature Pulse Rate 88 85 83 Respiratory Rate 20 20 20 Blood Pressure Pulse Oximetry Oxygen Delivery 06/05/22 06:00 Temperature 97.4 F L Pulse Rate 97 Respiratory Rate 16 Blood Pressure 110/75 Pulse Oximetry 95 Oxygen Delivery Intake/Output Intake/Output: Intake & Output 06/02/22 06/03/22 06/04/22 06/05/22 23:59 23:59 23:59 23:59 Intake Total 1000 2260 774 Output Total 750 950 875 500 Balance 250 1310 -101 -500 Meds/Results Medications: Active Medications Generic Name Dose Route Start Last Admin Trade Name Lauryn PRN Reason Stop Dose Admin Albuterol 2.5 mg 05/28/22 08:00 06/05/22 03:44 Albuterol Sulfate Neb 2.5 Mg/3 Ml Inh INHALATION 2.5 mg Q4HRT FREDDY Administration Amoxicillin/Clavulanate Potassium 1 tablet 06/01/22 09:00 06/04/22 21:05 Amoxicillin/Clavulanate K 875-125 Mg Tab PO 1 tablet Q12HR [facility]EDDY Administration Aspirin 81 mg 05/23/22 09:00 06/04/22 08:21 Aspirin 81 Mg Enteric Tablet PO Not Given QAM FRED[facility] Atorvastatin Calcium 80 mg 05/27/22 09:00 06/04/22 08:21 Atorvastatin 40 Mg Tablet PO Not Given DAILY FREDDY Clopidogrel Bisulfate 75 mg 05/23/22 09:00 05/27/22 09:32 Clopidogrel Bisulfate 75 Mg Tablet PO 75 mg QAM [facility]EDDY Administration Cefazolin Sodium 1 gm in 50 mls @ 100 mls/hr 06/03/22 14:00 06/05/22 05:05 Ancef 1 Gm/D5w 50 Ml Pm IV
[2022-06-05 07:42] LABS: Basophils Absolute Auto 0.1 K/mm3 (0.0-0.1); Basophils Percent Auto 0.4 % (0.2-1.2); Eosinophils Percent Auto 0.3 % (0-4.4); Hematocrit 35.7 % (42.0-52.0); Hemoglobin 11.7 g/dL (14.0-18.0); Immature Granulocyte Absolute 0.31 K/mm3 (0.00-0.031); Immature Granulocyte Percent A 1.9 % (0-0.5); Lymphocytes Absolute Auto 1.21 K/mm3 (0.9-3.2); Lymphocytes Percent Auto 7.6 % (18.3-44.2); Mean Corpuscular HGB Conc 32.8 g/dl (32-36); Mean Corpuscular Volume 88.6 fl (80-100); Mean Platelet Volume 9.8 fl (7.4-10.4); Monocytes Absolute Auto 1.4 K/mm3 (0.1-0.6); Monocytes Percent Auto 8.9 % (2.6-8.5); Neutrophils Absolute Auto 12.9 K/mm3 (1.3-6.7); Neutrophils Percent Auto 80.9 % (45.5-73.1); Platelet Count Result 436 k/mm3 (150-375); Red Blood Count 4.03 M/mm3 (4.6-6.20); Red Cell Distribution Width 14.5 % (11.5-14.5)
[2022-06-05 07:52] LABS: Alanine Aminotransferase 27 U/L (6-50); Albumin Level 3.3 g/dL (3.5-5.1); Alkaline Phosphatase 152 U/L (38-126); Anion Gap 10 mmol/L (8-16); Aspartate Amino Transferase 54 U/L (17-59); Bilirubin,Total 1.1 mg/dL (0.2-1.3); Blood Urea Nitrogen 19 mg/dL (9-20); Calcium 8.5 mg/dL (8.4-10.2); Carbon Dioxide 18 mmol/L (22-30); Chloride 102 mmol/L (98-107); Estimated CRCL calculation 54 ml/min; Estimated Glomerular Filt Rate > 60; Glucose 112 mg/dL (65-110); Magnesium 2.2 mg/dL (1.6-2.3); Phosphorus 4.1 mg/dL (2.5-4.5); Potassium 3.9 mmol/L (3.4-5.0); Sodium 130 mmol/L (137-145)
[2022-06-05] MEDS: ASPIRIN 81 MG ENTERIC TABLET PO (09:08)
[2022-06-05] MEDS: ATORVASTATIN 40 MG TABLET 80 MG PO (09:08)
[2022-06-05] MEDS: PANTOPRAZOLE SODIUM IV 40 MG VIAL IV PUSH (09:08)
[2022-06-05 14:00] VITALS: BP 93/63; PULSE 98; RESP 18; TEMP 36.3; O2SAT 95
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
[2022-06-05 22:00] VITALS: BP 110/64; PULSE 100; RESP 20; TEMP 36.6; O2SAT 92
[2022-06-06 06:00] VITALS: BP 86/48; PULSE 87; RESP 20; TEMP 37.9; O2SAT 93
[2022-06-06 06:45] LABS: Hematocrit 38.3 % (42.0-52.0); Hemoglobin 12.5 g/dL (14.0-18.0); Mean Corpuscular HGB Conc 32.6 g/dl (32-36); Mean Corpuscular Hemoglobin 29.8 pg (26-34); Mean Corpuscular Volume 91.2 fl (80-100); Mean Platelet Volume 9.9 fl (7.4-10.4); Platelet Count Result 468 k/mm3 (150-375); Red Cell Distribution Width 14.7 % (11.5-14.5); White Blood Count 14.2 K/mm3 (4.5-10.0)
[2022-06-06 06:56] LABS: Anion Gap 12 mmol/L (8-16); Blood Urea Nitrogen 21 mg/dL (9-20); Calcium 8.6 mg/dL (8.4-10.2); Carbon Dioxide 20 mmol/L (22-30); Chloride 101 mmol/L (98-107); Estimated CRCL calculation 48 ml/min; Estimated Glomerular Filt Rate > 60; Glucose 89 mg/dL (65-110); Potassium 3.8 mmol/L (3.4-5.0); Sodium 133 mmol/L (137-145)
--- NOTE | 2022-06-06 07:22 | WPDGIPROGNO ---
Progress Note: A&P Assessment and Plan (1) Leukocytosis: Code(s): D72.829 - Elevated white blood cell count, unspecified Status: Acute Assessment and Plan: Leukocytosis improving. He may have had an infection or perhaps peritonitis from previous PEG site when PEG was removed. Plan to complete course of antibiotics for 7-10 days. (2) PEG (percutaneous endoscopic gastrostomy) status: Code(s): Z93.1 - Gastrostomy status Status: Acute Assessment and Plan: PEG was placed a week and a half ago but dislodged. Appears to have had a small infection at PEG tube site. Patient is improved now swallowing adequately. We will not attempt to replace PEG tube. Plan to complete course of antibiotics. Leukocytosis greatly improved. Drainage from PEG site also improving. (3) Dysphagia: Code(s): R13.10 - Dysphagia, unspecified Status: Acute Assessment and Plan: Dysphagia after CVA. Plan to work with speech therapy on swallowing this should continue. (4) CVA (cerebral vascular accident): Qualifiers: CVA mechanism: unspecified Qualified Code(s): I63.9 - Cerebral infarction, unspecified Code(s): I63.9 - Cerebral infarction, unspecified Status: Acute Subjective Date/time seen: 06/06/22 07:22 Patient alert. Started to speak some. He was able to swallow safely on repeat modified barium swallow. Therefore PEG tube canceled. Less drainage from PEG tube site. Review of Systems Review of Systems: Review of systems noncontributory. Exam Narrative: Physical exam reveals patient be alert. Does not speak very much however. Vital signs stable he is afebrile. HEENT exam reveals no icterus. Lungs are clear. Heart without murmur. Abdomen bowel sounds present soft nontender previous PEG site with much less drainage today. Objective Data Vital Signs Vital Signs: Vital Signs - 24 hr 06/05/22 08:15 06/05/22 14:00 06/05/22 22:00 Temperature 97.3 F L 98 F Pulse Rate 98 100 Respiratory Rate 18 20 Blood Pressure 93/63 L 110/64 Pulse Oximetry 95 92 Oxygen Delivery Room Air 06/05/22 20:00 06/06/22 06:00 Temperature 100.3 F H Pulse Rate 87 Respiratory Rate 20 Blood Pressure 86/48 L Pulse Oximetry 93 Oxygen Delivery Room Air Intake/Output Intake/Output: Intake & Output 06/03/22 06/04/22 06/05/22 06/06/22 23:59 23:59 23:59 23:59 Intake Total 2260 774 1300 50 Output Total 950 875 500 500 Balance 1310 -101 800 -450 Meds/Results Medications: Active Medications Generic Name Dose Route Start Last Admin Trade Name Freq PRN Reason Stop Dose Admin Albuterol 2.5 mg 06/05/22 07:48 Albuterol Sulfate Neb 2.5 Mg/3 Ml Inh INHALATION Q4HRT PRN Shortness Of Breath Or Wheezing Aspirin 81 mg 05/23/22 09:00 06/05/22 09:08 Aspirin 81 Mg Enteric Tablet PO 81 mg QAM [facility] Administration Atorvastatin Calcium 80 mg 05/27/22 09:00 06/05/22 09:08 Atorvastatin 40 Mg Tablet PO 80 mg DAILY [facility] Administration Clopidogrel Bisulfate 75 mg 05/23/22 09:00 05/27/22 09:32 Clopidogrel Bisulfate 75 Mg Tablet PO 75 mg QAM [facility] Administration Piperacillin/Tazobactam/Dextrose 3.375 gm in 50 mls @ 100 mls/hr 06/05/22 09:00 06/06/22 03:56 Zosyn 3.375 Gm/D5w 50ml Pm IVPB Infused Q6H [facility] Infusion Ipratropium [place] 0.5 mg 06/05/22 07:48 Ipratropium Br 0.02% Inh Soln 0.5 Mg/2.5 Ml Vial INHALATION Q4HRT PRN Shortness Of Breath Or Wheezing Pantoprazole Sodium 40 mg 05/27/22 09:00 06/05/22 09:08 Pantoprazole Sodium Iv 40 Mg Vial IV PUSH 40 mg QAM [facility] Administration Tamsulosin HCl 0.4 mg 05/23/22 09:00 06/04/22 08:21 Tamsulosin Hcl 0.4 Mg Capsule PO Not [facility] Results: ITS Impressions Cervical Spine CT 05/22/22 19:56 IMPRESSION: 1. Severe cervical spondylosis. No acute osseous abnormality. 2. Moderate emphysema. 3. Prominent athe
[2022-06-06 08:00] VITALS: BP 98/64; PULSE 84; RESP 14; TEMP 36.6; O2SAT 100
[2022-06-06 08:24] LABS: EDCOVIDSCREEN Negative (Negative)
[2022-06-06] MEDS: ASPIRIN 81 MG ENTERIC TABLET PO (09:38)
[2022-06-06] MEDS: ATORVASTATIN 40 MG TABLET 80 MG PO (09:38)
[2022-06-06] MEDS: CLOPIDOGREL BISULFATE 75 MG TABLET PO (09:38)
[2022-06-06] MEDS: PANTOPRAZOLE 40 MG TABLET PO (09:40)
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
[2022-06-06 10:49] VITALS: O2SAT 93
== END 2022-06-06 12:30 | DRG 64 ==
LOC: ANHED 20:58 → ANHIMU 21:55 → ANH3MEDSUR 05-28 18:40
PROVIDERS: Chiropractor; Internal Medicine; Internal Medicine Gastroenterology; Student in an Organized Health Care Education/Training Program; Admitting Provider Internal Medicine; Emergency Provider Emergency Medicine; Visit Provider Internal Medicine
PROC: 0DH63UZ Insertion of Feeding Device into Stomach, Percutaneous Approach (ICD-10-PCS; CPT 43246; principal; 2022-05-29 13:00)
DX: I63.89 Other cerebral infarction (principal); I21.A1 Myocardial infarction type 2; J69.0 Pneumonitis due to inhalation of food and vomit; G81.94 Hemiplegia, unspecified affecting left nondominant side; G93.40 Encephalopathy, unspecified; C15.9 Malignant neoplasm of esophagus, unspecified; Z43.1 Encounter for attention to gastrostomy; E87.1 Hypo-osmolality and hyponatremia; N17.9 Acute kidney failure, unspecified; R13.12 Dysphagia, oropharyngeal phase; R29.810 Facial weakness; H53.8 Other visual disturbances; R29.712 NIHSS score 12; I65.21 Occlusion and stenosis of right carotid artery; I65.01 Occlusion and stenosis of right vertebral artery; N40.1 Benign prostatic hyperplasia with lower urinary tract symptoms; R33.8 Other retention of urine; R35.0 Frequency of micturition; R35.1 Nocturia; J43.9 Emphysema, unspecified; I25.5 Ischemic cardiomyopathy; E89.0 Postprocedural hypothyroidism; I10 Essential (primary) hypertension; E78.5 Hyperlipidemia, unspecified; Z20.822 Contact with and (suspected) exposure to COVID-19; Z28.21 Immunization not carried out because of patient refusal; V57.5XXA Driver of pick-up truck or van injured in collision with fixed or stationary object in traffic accident, initial encounter; Z79.82 Long term (current) use of aspirin; Z86.73 Personal history of transient ischemic attack (TIA), and cerebral infarction without residual deficits; Z87.891 Personal history of nicotine dependence; Z95.1 Presence of aortocoronary bypass graft
CPT/HCPCS: 36415; 43246; 43752; 70450; 70496; 70498; 70553; 71045; 72125; 73030; 74019; 80048; 80053; 80061; 81001; 82948; 83036; 83605; 83735; 83880; 84100; 84145; 84484; 85025; 85027; 85055; 85610; 85730; 86140; 87040; 87426; 88305; 88342; 92526; 92610; 92611; 93005; 93970; 94640; 96360; 97110; 97112; 97163; 97166; 97530; 97535; 99285; A9270; A9577; C8929; C9113; C9803; J0131; J0690; J1940; J2543; J2704; J3480; J7030; J7040; J7042; J7120; Q9957; Q9967; U0003; U0005